=== PATIENT | male | born 1955 | race African-American/Black ===

== ENCOUNTER 2019-12-31 00:29 | Inpatient (IN) | payer MEDICAID ==
[~2019-12-31] VITALS: Ht 170.2 cm; Wt 67.6 kg
[2019-12-31] MEDS ORDERED: ONDANSETRON HCL 4MG/2ML INJ IV STA (00:58)
[2019-12-31] MEDS ORDERED: ALBUTEROL (0.083%) 2.5MG/3ML NEB HHN STA (00:58)
[2019-12-31] MEDS ORDERED: IPRATROPIUM BROMIDE (0.02%) 0.5MG/2.5ML NEB HHN STA (00:58)
[2019-12-31] MEDS ORDERED: ASPIRIN 81MG TABLET PO ONE (01:00)
[2019-12-31 01:32] LABS: EOSINOPHILS % 0.8 % (0.0-5.0); HEMATOCRIT. 43.7 % (42.0-52.0); HEMOGLOBIN. 14.4 g/dL (14.0-18.0); LYMPHOCYTES % 22.1 % (20.0-50.0); MEAN CORPUSCULAR HEMOGLOBIN 31.8 pg (28.0-32.0); MEAN CORPUSCULAR VOLUME 96.7 fL (80.0-94.0); MEAN PLATELET VOLUME 8.1 fl (7.4-10.4); MONOCYTES % 9.4 % (2.0-8.0); NEUTROPHILS % 66.7 % (40.0-76.0); PLATELET 255 x1000/uL (130-400); RED BLOOD CELL COUNT 4.52 mill/uL (4.7-6.1); RED CELL DISTRIBUTION WIDTH 15.5 % (11.6-14.6)
[2019-12-31 01:39] LABS: CHLORIDE 98 mEq/L (98-107)
[2019-12-31 06:00] VITALS: BP 129/59
[2019-12-31] MEDS ORDERED: MORPHINE SULFATE 2 MG/ML CPJ (NOT FOR IM USE) IV PRN (06:15)
[2019-12-31] MEDS ORDERED: CLONIDINE 0.1MG TABLET PO PRN (06:15)
[2019-12-31] MEDS ORDERED: IPRATROPIUM/ALBUTEROL 0.5-3(2.5)MG/3ML NEB HHN PRN (06:15)
[2019-12-31] MEDS ORDERED: LORAZEPAM 0.5MG TABLET PO PRN (06:30)
[2019-12-31] MEDS ORDERED: METHYLPREDNISOLONE SOD SUCC 40 MG/ML VIAL IV SCH (07:00)
[2019-12-31] MEDS ORDERED: KETOROLAC 15MG/ML VIAL IV PRN (07:30)
[2019-12-31] MEDS: IPRATROPIUM/ALBUTEROL 0.5-3(2.5)MG/3ML NEB HHN SCH ×2 (07:51→12:14)
[2019-12-31 08:00] VITALS: BP 116/51
[2019-12-31 08:45] VITALS: BP 129/59
[2019-12-31] MEDS ORDERED: LEVOFLOXACIN 500MG PREMIX 100 ML IV SCH (09:00)
[2019-12-31] MEDS ORDERED: ENOXAPARIN 40MG/0.4ML SYR SUBCUT SCH (09:00)
[2019-12-31 10:20] VITALS: BP 97/51
[2020-01-01] MEDS ORDERED: FURO20TA4 MT (11:58)
[2020-01-01] MEDS ORDERED: METF-414 MT (11:58)
[2020-01-01] MEDS ORDERED: MONT10TA21 MT (11:58)
[2020-01-01] MEDS ORDERED: LISI-604 MT (11:58)
[2020-01-01] MEDS ORDERED: ALBU6.7H9 INH (11:58)
[2020-01-01] MEDS ORDERED: FLUT1AER5 INH (11:58)
[2020-01-01] MEDS ORDERED: P20 MT (11:58)
[2020-01-01] MEDS ORDERED: IBUP-2030 MT (11:58)
[2020-01-01] MEDS ORDERED: AMLO10TA80 MT (11:58)
[2020-01-13] MEDS ORDERED: HYDR-4009 MT (12:01)
[2020-01-13] MEDS ORDERED: METF500T PO (12:01)
[2020-01-13] MEDS ORDERED: FURO-152 MT (12:01)
== END 2019-12-31 14:32 | disposition left against medical advice (07) | DRG 140 ==
LOC: ER 00:29 → EDBEDREQ 02:10 → ENRESERV 02:45 → 3WST 06:13 → 7WST 09:50
PROVIDERS: ADMIT Internal Medicine; ATTEND Internal Medicine
PROC: 5A09357 Assistance with Respiratory Ventilation, Less than 24 Consecutive Hours, Continuous Positive Airway Pressure (ICD-10-PCS; principal; 2019-12-31)
DX: J44.1 Chronic obstructive pulmonary disease with (acute) exacerbation (principal); J96.20 Acute and chronic respiratory failure, unspecified whether with hypoxia or hypercapnia; Z99.81 Dependence on supplemental oxygen; I10 Essential (primary) hypertension; Z51.5 Encounter for palliative care; Z79.899 Other long term (current) drug therapy
CPT/HCPCS: 36415; 71045; 80053; 83605; 83880; 84484; 85025; 87804; 93005; 94640; 94660; 99285; J1650; J1885; J1956; J2405; J2920

== ENCOUNTER 2020-01-01 06:00 | Inpatient (IN) | payer MEDICAID ==
[~2020-01-01] VITALS: Ht 175.3 cm; Wt 63.5 kg
[2020-01-01] MEDS ORDERED: IPRATROPIUM BROMIDE (0.02%) 0.5MG/2.5ML NEB HHN STA (06:16)
[2020-01-01] MEDS ORDERED: ALBUTEROL (0.083%) 2.5MG/3ML NEB HHN STA (06:16)
[2020-01-01] MEDS ORDERED: ASPIRIN 81MG TABLET PO ONE (06:30)
[2020-01-01] MEDS ORDERED: MAGNESIUM 2 G PREMIX 50 ML IV ONE (06:30)
[2020-01-01] MEDS ORDERED: ONDANSETRON HCL 4MG/2ML INJ IV ONE (06:30)
[2020-01-01] MEDS ORDERED: HYDROCODONE/ACETAMINOPHEN 5/325MG TABLET PO ONE (06:30)
[2020-01-01] MEDS ORDERED: NITROGLYCERIN OINT 1GM/INCH UDPKT TD ONE (06:30)
[2020-01-01] MEDS: ALBUTEROL (0.083%) 2.5MG/3ML NEB HHN SCH ×2 (07:15→07:29)
[2020-01-01 07:26] LABS: BASOPHILS % 0.7 % (0.0-2.0); HEMATOCRIT. 46.4 % (42.0-52.0); MEAN CORPUSCULAR HEMOGLOBIN 31.5 pg (28.0-32.0); MEAN CORPUSCULAR VOLUME 97.3 fL (80.0-94.0); MEAN PLATELET VOLUME 7.8 fl (7.4-10.4); MONOCYTES % 10.1 % (2.0-8.0); NEUTROPHILS % 70.2 % (40.0-76.0); PLATELET 268 x1000/uL (130-400); RED BLOOD CELL COUNT 4.77 mill/uL (4.7-6.1); RED CELL DISTRIBUTION WIDTH 15.4 % (11.6-14.6)
[2020-01-01 07:36] LABS: CHLORIDE 97 mEq/L (98-107)
[2020-01-01 09:20] VITALS: BP 102/58
[2020-01-01 09:25] VITALS: BP 102/58
[2020-01-01] MEDS ORDERED: IPRATROPIUM/ALBUTEROL 0.5-3(2.5)MG/3ML NEB HHN PRN (11:00)
[2020-01-01] MEDS ORDERED: ACETAMINOPHEN 325MG TABLET PO PRN (11:00)
[2020-01-01] MEDS ORDERED: ONDANSETRON HCL 4MG/2ML INJ IV PRN (11:00)
[2020-01-01] MEDS ORDERED: CLONIDINE 0.1MG TABLET PO PRN (11:00)
[2020-01-01 11:56] VITALS: BP 93/39
[2020-01-01] MEDS ORDERED: IBUP-2030 MT (11:58)
[2020-01-01] MEDS ORDERED: METF-414 MT (11:58)
[2020-01-01] MEDS ORDERED: MONT10TA21 MT (11:58)
[2020-01-01] MEDS ORDERED: ALBU6.7H9 INH (11:58)
[2020-01-01] MEDS ORDERED: LISI-604 MT (11:58)
[2020-01-01] MEDS ORDERED: P20 MT (11:58)
[2020-01-01] MEDS ORDERED: FLUT1AER5 INH (11:58)
[2020-01-01] MEDS ORDERED: AMLO10TA80 MT (11:58)
[2020-01-01] MEDS ORDERED: FURO20TA4 MT (11:58)
[2020-01-01] MEDS: METHYLPREDNISOLONE SOD SUCC 40 MG/ML VIAL IV SCH ×2 (12:49→19:03)
[2020-01-01] MEDS: ENOXAPARIN 40MG/0.4ML SYR SUBCUT SCH (12:52)
[2020-01-01] MEDS: HYDROCODONE/ACETAMINOPHEN 5/325MG TABLET PO PRN ×2 (13:51→23:16)
[2020-01-01] MEDS: IPRATROPIUM/ALBUTEROL 0.5-3(2.5)MG/3ML NEB HHN SCH ×3 (14:15→20:26)
[2020-01-01 16:07] VITALS: BP 106/61
[2020-01-01 18:57] LABS: *AMPHETAMINES SCREEN URINE NEGATIVE (NEGATIVE); *BARBITURATES SCREEN URINE NEGATIVE (NEGATIVE); *BENZODIAZEPINES SCREEN URINE NEGATIVE (NEGATIVE); *COCAINE SCREEN URINE PRESUMTIVE POSITIVE (NEGATIVE); METHADONE URINE SCREEN NEGATIVE (NEGATIVE); PHENCYCLIDINE URINE SCREEN NEGATIVE (NEGATIVE)
[2020-01-01 18:58] LABS: CANNABINOID URINE SCREEN NEGATIVE (NEGATIVE)
[2020-01-01 20:00] VITALS: BP 126/72
[2020-01-02] VITALS (7 sets, daily range): BP systolic 124–150; BP diastolic 66–85
[2020-01-02] MEDS: IPRATROPIUM/ALBUTEROL 0.5-3(2.5)MG/3ML NEB HHN SCH ×7 (00:33→23:48)
[2020-01-02] MEDS: METHYLPREDNISOLONE SOD SUCC 40 MG/ML VIAL IV SCH ×3 (02:37→19:29)
[2020-01-02] MEDS: HYDROCODONE/ACETAMINOPHEN 5/325MG TABLET PO PRN ×3 (06:09→19:29)
[2020-01-02] MEDS: ENOXAPARIN 40MG/0.4ML SYR SUBCUT SCH (11:38)
[2020-01-02] MEDS: METFORMIN HCL 500MG TABLET PO SCH (19:34)
[2020-01-03] VITALS: BP 232/73
[2020-01-03 00:41] VITALS: BP 136/73
[2020-01-03] MEDS: METHYLPREDNISOLONE SOD SUCC 40 MG/ML VIAL IV SCH ×2 (03:52→11:58)
[2020-01-03 04:00] VITALS: BP 126/49
[2020-01-03] MEDS: IPRATROPIUM/ALBUTEROL 0.5-3(2.5)MG/3ML NEB HHN SCH ×2 (04:43→08:25)
[2020-01-03 08:00] VITALS: BP 146/72
[2020-01-03] MEDS: METFORMIN HCL 500MG TABLET PO SCH (08:11)
[2020-01-03] MEDS: HYDROCODONE/ACETAMINOPHEN 5/325MG TABLET PO PRN (08:13)
[2020-01-03] MEDS: ENOXAPARIN 40MG/0.4ML SYR SUBCUT SCH (11:59)
[2020-01-03 12:00] VITALS: BP 115/76
[2020-01-03 13:20] VITALS: BP 115/76
[2020-01-04 16:50] LABS: OPIATES URINE SCREEN PRESUMTIVE POSITIVE (NEGATIVE)
[2020-01-13] MEDS ORDERED: FURO-152 MT (12:01)
[2020-01-13] MEDS ORDERED: HYDR-4009 MT (12:01)
[2020-01-13] MEDS ORDERED: METF500T PO (12:01)
== END 2020-01-03 15:05 | disposition home or self-care (01) | DRG 816 ==
LOC: ER 06:00 → EDBEDREQ 06:20 → 6WST 07:04 → EDBEDREQTM 07:23 → EDBEDREQ 07:23 → ENRESERV 08:05 → CANRESERV 08:05 → ENRESERV 08:07
PROVIDERS: ADMIT Internal Medicine; ATTEND Internal Medicine
DX: T40.5X1A Poisoning by cocaine, accidental (unintentional), initial encounter (principal); J96.20 Acute and chronic respiratory failure, unspecified whether with hypoxia or hypercapnia; I11.0 Hypertensive heart disease with heart failure; E87.8 Other disorders of electrolyte and fluid balance, not elsewhere classified; I50.42 Chronic combined systolic (congestive) and diastolic (congestive) heart failure; J18.9 Pneumonia, unspecified organism; E11.9 Type 2 diabetes mellitus without complications; F14.10 Cocaine abuse, uncomplicated; J44.0 Chronic obstructive pulmonary disease with (acute) lower respiratory infection; J44.1 Chronic obstructive pulmonary disease with (acute) exacerbation; F17.210 Nicotine dependence, cigarettes, uncomplicated; Z51.5 Encounter for palliative care; R07.89 Other chest pain; F15.90 Other stimulant use, unspecified, uncomplicated; I25.2 Old myocardial infarction; Z88.5 Allergy status to narcotic agent; Z99.81 Dependence on supplemental oxygen; Z71.51 Drug abuse counseling and surveillance of drug abuser; Y92.89 Other specified places as the place of occurrence of the external cause
CPT/HCPCS: 36415; 71045; 80053; 80305; 82962; 83036; 83880; 84484; 85025; 93005; 94640; 99285; J1650; J2405; J2920; J3475

== ENCOUNTER 2022-03-31 11:59 | Inpatient (IN) | payer MEDICARE, MEDICAID ==
[~2022-03-31] VITALS: Ht 175.3 cm; Wt 57.6 kg
[~2022-03-31 11:59] MED LIST: ALBU6.7H9 INH; AMLO10TA80 MT; FLUT1AER5 INH; FURO-152 MT; FURO20TA4 MT; HYDR-4009 MT; IBUP-2030 MT; LISI20TA31 MT; METF-414 MT; METF500T PO; MONT10TA21 MT; P20 MT
[2022-03-31] MEDS ORDERED: METHYLPREDNISOLONE SOD SUCC 125 MG/2 ML VIAL IV STA (12:26)
[2022-03-31] MEDS ORDERED: IPRATROPIUM BROMIDE (0.02%) 0.5MG/2.5ML NEB HHN STA ×2 (12:26→15:09)
[2022-03-31] MEDS ORDERED: ALBUTEROL (0.083%) 2.5MG/3ML NEB HHN STA ×2 (12:26→15:09)
[2022-03-31] MEDS ORDERED: HYDROCODONE/ACETAMINOPHEN 5/325MG TABLET PO ONE (12:30)
[2022-03-31] MEDS ORDERED: HYDROCODONE/ACETAMINOPHEN 10/325MG TABLET PO ONE (12:45)
[2022-03-31 13:09] LABS: BASOPHILS % 0.8 % (0.0-2.0); HEMATOCRIT. 48.6 % (42.0-52.0); HEMOGLOBIN. 15.8 g/dL (14.0-18.0); LYMPHOCYTES % 33.2 % (20.0-50.0); MEAN CORPUSCULAR HEMOGLOBIN 31.8 pg (28.0-32.0); MEAN CORPUSCULAR VOLUME 98.1 fL (80.0-94.0); MEAN PLATELET VOLUME 8.3 fl (7.4-10.4); MONOCYTES % 11.1 % (2.0-8.0); NEUTROPHILS % 52.9 % (40.0-76.0); PLATELET 206 x1000/uL (130-400); RED BLOOD CELL COUNT 4.96 mill/uL (4.7-6.1)
[2022-03-31 13:15] LABS: CHLORIDE 100 mEq/L (98-107)
[2022-03-31] MEDS ORDERED: ALBUTEROL (0.5%) 2.5MG/0.5ML NEB HHN ONE (18:27)
[2022-03-31] MEDS ORDERED: IPRATROPIUM BROMIDE (0.02%) 0.5MG/2.5ML NEB ONE (18:27)
[2022-03-31] MEDS ORDERED: NALOXONE HCL 0.4MG/ML VIAL IV PRN (18:30)
[2022-03-31] MEDS ORDERED: HYDROCODONE/ACETAMINOPHEN 10/325MG TABLET PO PRN (18:30)
[2022-03-31] MEDS ORDERED: IPRATROPIUM/ALBUTEROL 0.5-3(2.5)MG/3ML NEB HHN PRN (21:15)
[2022-03-31] MEDS ORDERED: CLONIDINE 0.1MG TABLET PO PRN (21:15)
[2022-03-31] MEDS ORDERED: DEXTROSE 50% WATER 50ML SYRINGE IV PRN (21:30)
[2022-03-31] MEDS: METHYLPREDNISOLONE SOD SUCC 40 MG/ML VIAL IV SCH (22:09)
[2022-03-31] MEDS: ZOLPIDEM TARTRATE 5MG TABLET PO PRN (22:10)
[2022-03-31 22:38] VITALS: BP 190/93
[2022-03-31] MEDS: LEVOFLOXACIN 500MG PREMIX 100 ML IV SCH (23:21)
[2022-04-01] VITALS: BP 139/69
[2022-04-01] MEDS: HYDROCODONE/ACETAMINOPHEN 10/325MG TABLET PO PRN ×3 (01:47→18:51)
[2022-04-01 04:00] VITALS: BP 124/56
[2022-04-01] MEDS: BLOOD SUGAR DIAGNOSTIC STRIP TEST SCH ×4 (07:23→20:35)
[2022-04-01] MEDS: METHYLPREDNISOLONE SOD SUCC 40 MG/ML VIAL IV SCH ×3 (07:27→20:35)
[2022-04-01 08:00] VITALS: BP 109/62
[2022-04-01] MEDS: INSULIN LISPRO 100 UNITS/ML SUBCUT SCH ×4 (08:10→20:35)
[2022-04-01] MEDS: ENOXAPARIN 40MG/0.4ML SYR SUBCUT SCH (08:37)
[2022-04-01] MEDS: METFORMIN HCL 500MG TABLET PO SCH ×2 (08:37→17:47)
[2022-04-01] MEDS: LISINOPRIL 20MG TABLET PO SCH (09:00)
[2022-04-01] MEDS: AMLODIPINE 10MG TABLET PO SCH (09:00)
[2022-04-01 12:00] VITALS: BP 142/82
[2022-04-01 15:57] LABS: *AMPHETAMINES SCREEN URINE NEGATIVE (NEGATIVE); *BARBITURATES SCREEN URINE NEGATIVE (NEGATIVE); *BENZODIAZEPINES SCREEN URINE NEGATIVE (NEGATIVE); *COCAINE SCREEN URINE PRESUMTIVE POSITIVE (NEGATIVE); CANNABINOID URINE SCREEN PRESUMTIVE POSITIVE (NEGATIVE); METHADONE URINE SCREEN NEGATIVE (NEGATIVE); OPIATES URINE SCREEN PRESUMTIVE POSITIVE (NEGATIVE); PHENCYCLIDINE URINE SCREEN NEGATIVE (NEGATIVE)
[2022-04-01 16:00] VITALS: BP 114/52
[2022-04-01] MEDS: GUAIFENESIN-DM 200MG-20MG/10ML UDC PO PRN ×2 (16:03→20:35)
[2022-04-01 20:00] VITALS: BP 141/50
[2022-04-01] MEDS: ZOLPIDEM TARTRATE 5MG TABLET PO PRN (20:35)
[2022-04-01] MEDS: LEVOFLOXACIN 500MG PREMIX 100 ML IV SCH (21:55)
[2022-04-02] VITALS: BP 115/70
[2022-04-02] MEDS: GUAIFENESIN-DM 200MG-20MG/10ML UDC PO PRN ×2 (01:08→23:33)
[2022-04-02] MEDS: HYDROCODONE/ACETAMINOPHEN 10/325MG TABLET PO PRN ×3 (01:13→19:51)
[2022-04-02 04:00] VITALS: BP 103/80
[2022-04-02] MEDS: METHYLPREDNISOLONE SOD SUCC 40 MG/ML VIAL IV SCH ×3 (05:53→21:23)
[2022-04-02] MEDS: INSULIN LISPRO 100 UNITS/ML SUBCUT SCH ×4 (05:59→21:00)
[2022-04-02] MEDS: BLOOD SUGAR DIAGNOSTIC STRIP TEST SCH ×4 (05:59→21:00)
[2022-04-02 08:00] VITALS: BP 161/71
[2022-04-02] MEDS: ENOXAPARIN 40MG/0.4ML SYR SUBCUT SCH (08:34)
[2022-04-02] MEDS: LISINOPRIL 20MG TABLET PO SCH (08:34)
[2022-04-02] MEDS: METFORMIN HCL 500MG TABLET PO SCH ×2 (08:35→18:31)
[2022-04-02] MEDS: AMLODIPINE 10MG TABLET PO SCH (08:35)
[2022-04-02] MEDS ORDERED: ALBU6.7H9 INH (09:55)
[2022-04-02] MEDS ORDERED: FLUT1AER5 INH (09:55)
[2022-04-02] MEDS ORDERED: P20 MT (09:55)
[2022-04-02 12:00] VITALS: BP 110/52
[2022-04-02 16:00] VITALS: BP 132/62
[2022-04-02 20:00] VITALS: BP 105/35
[2022-04-02] MEDS: LEVOFLOXACIN 500MG PREMIX 100 ML IV SCH (21:23)
[2022-04-02] MEDS: IPRATROPIUM/ALBUTEROL 0.5-3(2.5)MG/3ML NEB HHN SCH (21:43)
[2022-04-03 04:00] VITALS: BP 131/56
[2022-04-03] MEDS: GUAIFENESIN-DM 200MG-20MG/10ML UDC PO PRN ×2 (04:56→20:23)
[2022-04-03] MEDS: HYDROCODONE/ACETAMINOPHEN 10/325MG TABLET PO PRN ×2 (04:56→20:24)
[2022-04-03] MEDS: METHYLPREDNISOLONE SOD SUCC 40 MG/ML VIAL IV SCH ×3 (04:56→20:23)
[2022-04-03] MEDS: BLOOD SUGAR DIAGNOSTIC STRIP TEST SCH ×4 (07:40→21:00)
[2022-04-03 08:00] VITALS: BP 119/64
[2022-04-03] MEDS: INSULIN LISPRO 100 UNITS/ML SUBCUT SCH ×4 (08:10→21:00)
[2022-04-03] MEDS: METFORMIN HCL 500MG TABLET PO SCH ×2 (09:00→17:40)
[2022-04-03] MEDS: LISINOPRIL 20MG TABLET PO SCH (09:00)
[2022-04-03] MEDS: ENOXAPARIN 40MG/0.4ML SYR SUBCUT SCH (09:01)
[2022-04-03] MEDS: AMLODIPINE 10MG TABLET PO SCH (09:01)
[2022-04-03] MEDS: IPRATROPIUM/ALBUTEROL 0.5-3(2.5)MG/3ML NEB HHN SCH ×4 (09:46→20:56)
[2022-04-03 12:00] VITALS: BP 104/44
[2022-04-03 16:00] VITALS: BP 109/46
[2022-04-03 20:00] VITALS: BP 125/40
[2022-04-03] MEDS: LEVOFLOXACIN 500MG PREMIX 100 ML IV SCH (21:10)
[2022-04-04] MEDS: IPRATROPIUM/ALBUTEROL 0.5-3(2.5)MG/3ML NEB HHN SCH ×4 (00:30→21:40)
[2022-04-04 04:00] VITALS: BP 117/55
[2022-04-04] MEDS: METHYLPREDNISOLONE SOD SUCC 40 MG/ML VIAL IV SCH ×2 (05:21→17:47)
[2022-04-04 06:48] LABS: CHLORIDE 96 mEq/L (98-107)
[2022-04-04 07:04] LABS: HEMATOCRIT. 43.2 % (42.0-52.0); HEMOGLOBIN. 13.9 g/dL (14.0-18.0); MEAN CORPUSCULAR HEMOGLOBIN 31.6 pg (28.0-32.0); MEAN CORPUSCULAR VOLUME 98.4 fL (80.0-94.0); MEAN PLATELET VOLUME 9.8 fl (7.4-10.4); PLATELET 190 x1000/uL (130-400); RED BLOOD CELL COUNT 4.39 mill/uL (4.7-6.1)
[2022-04-04] MEDS: BLOOD SUGAR DIAGNOSTIC STRIP TEST SCH ×4 (07:10→20:49)
[2022-04-04] MEDS: INSULIN LISPRO 100 UNITS/ML SUBCUT SCH ×4 (07:10→20:50)
[2022-04-04 08:00] VITALS: BP 126/61
[2022-04-04] MEDS: HYDROCODONE/ACETAMINOPHEN 10/325MG TABLET PO PRN ×3 (09:10→21:24)
[2022-04-04] MEDS: LISINOPRIL 20MG TABLET PO SCH (09:10)
[2022-04-04] MEDS: AMLODIPINE 10MG TABLET PO SCH (09:10)
[2022-04-04] MEDS: METFORMIN HCL 500MG TABLET PO SCH ×2 (09:11→17:47)
[2022-04-04] MEDS: ENOXAPARIN 40MG/0.4ML SYR SUBCUT SCH (09:13)
[2022-04-04 12:00] VITALS: BP 102/52
[2022-04-04] MEDS: BENZONATATE 100MG CAPSULE PO SCH ×2 (12:38→20:49)
[2022-04-04 16:00] VITALS: BP 133/72
[2022-04-04 20:00] VITALS: BP 124/68
[2022-04-04] MEDS: LEVOFLOXACIN 500MG PREMIX 100 ML IV SCH (21:25)
[2022-04-04] MEDS: ZOLPIDEM TARTRATE 5MG TABLET PO PRN (22:45)
[2022-04-05] VITALS: BP 128/66
[2022-04-05] MEDS: GUAIFENESIN-DM 200MG-20MG/10ML UDC PO PRN (01:39)
[2022-04-05] MEDS: HYDROCODONE/ACETAMINOPHEN 10/325MG TABLET PO PRN ×4 (03:26→22:49)
[2022-04-05] MEDS: IPRATROPIUM/ALBUTEROL 0.5-3(2.5)MG/3ML NEB HHN SCH ×4 (03:38→21:38)
[2022-04-05 04:00] VITALS: BP 119/58
[2022-04-05] MEDS: BENZONATATE 100MG CAPSULE PO SCH ×3 (04:30→20:57)
[2022-04-05] MEDS: BLOOD SUGAR DIAGNOSTIC STRIP TEST SCH ×4 (06:41→20:48)
[2022-04-05] MEDS: INSULIN LISPRO 100 UNITS/ML SUBCUT SCH ×4 (06:41→20:48)
[2022-04-05 07:23] LABS: PLATELET ESTIMATE NORMAL
[2022-04-05 08:00] VITALS: BP 126/77
[2022-04-05] MEDS: LISINOPRIL 20MG TABLET PO SCH (08:43)
[2022-04-05] MEDS: METHYLPREDNISOLONE SOD SUCC 40 MG/ML VIAL IV SCH (08:44)
[2022-04-05] MEDS: ENOXAPARIN 40MG/0.4ML SYR SUBCUT SCH (08:44)
[2022-04-05] MEDS: METFORMIN HCL 500MG TABLET PO SCH ×2 (08:44→17:26)
[2022-04-05] MEDS: AMLODIPINE 10MG TABLET PO SCH (08:44)
[2022-04-05 12:00] VITALS: BP 135/66
[2022-04-05] MEDS ORDERED: IPRA3AMP9 HHN (13:56)
[2022-04-05 16:00] VITALS: BP 145/54
[2022-04-05] MEDS: PREDNISONE 20MG TABLET PO SCH (16:29)
[2022-04-05 20:00] VITALS: BP 125/59
[2022-04-05] MEDS ORDERED: LEVOFLOXACIN 500MG TABLET PO SCH (21:00)
[2022-04-05] MEDS ORDERED: ZOLPIDEM TARTRATE 5MG TABLET PO PRN (22:45)
[2022-04-06] VITALS: BP 108/59
[2022-04-06] MEDS: IPRATROPIUM/ALBUTEROL 0.5-3(2.5)MG/3ML NEB HHN SCH ×2 (01:50→08:33)
[2022-04-06 04:00] VITALS: BP 105/51
[2022-04-06] MEDS: BENZONATATE 100MG CAPSULE PO SCH (04:39)
[2022-04-06] MEDS: HYDROCODONE/ACETAMINOPHEN 10/325MG TABLET PO PRN (04:39)
[2022-04-06] MEDS: BLOOD SUGAR DIAGNOSTIC STRIP TEST SCH ×2 (07:34→12:05)
[2022-04-06] MEDS: INSULIN LISPRO 100 UNITS/ML SUBCUT SCH ×2 (07:34→12:05)
[2022-04-06 08:00] VITALS: BP 145/91
[2022-04-06] MEDS: AMLODIPINE 10MG TABLET PO SCH (08:56)
[2022-04-06] MEDS: PREDNISONE 20MG TABLET PO SCH (08:56)
[2022-04-06] MEDS: ENOXAPARIN 40MG/0.4ML SYR SUBCUT SCH (08:56)
[2022-04-06] MEDS: METFORMIN HCL 500MG TABLET PO SCH (08:56)
[2022-04-06] MEDS: LISINOPRIL 20MG TABLET PO SCH (08:57)
[2022-04-06 10:28] VITALS: BP 140/68
== END 2022-04-06 13:05 | disposition home or self-care (01) | DRG 140 ==
LOC: ER 12:10 → 7WST 16:50 → ENRESERV 19:17
PROVIDERS: ADMIT Internal Medicine; ATTEND Internal Medicine
DX: J44.1 Chronic obstructive pulmonary disease with (acute) exacerbation (principal); J96.01 Acute respiratory failure with hypoxia; E11.40 Type 2 diabetes mellitus with diabetic neuropathy, unspecified; D72.819 Decreased white blood cell count, unspecified; F12.90 Cannabis use, unspecified, uncomplicated; F14.90 Cocaine use, unspecified, uncomplicated; I10 Essential (primary) hypertension; Z99.81 Dependence on supplemental oxygen; Z20.822 Contact with and (suspected) exposure to COVID-19; F17.210 Nicotine dependence, cigarettes, uncomplicated; Z88.8 Allergy status to other drugs, medicaments and biological substances; Z79.899 Other long term (current) drug therapy
CPT/HCPCS: 36415; 71045; 80048; 80053; 80305; 82962; 83036; 85025; 87426; 93005; 94640; 99285; C9803; J1650; J1956; J2920; J2930; J7512

== ENCOUNTER 2022-05-20 18:11 | Inpatient (IN) | payer MEDICARE, MEDICAID ==
[~2022-05-20] VITALS: Ht 177.8 cm; Wt 65.3 kg
[~2022-05-20 18:11] MED LIST changes: +IPRA3AMP9 HHN
[2022-05-20] MEDS ORDERED: IPRATROPIUM BROMIDE (0.02%) 0.5MG/2.5ML NEB HHN STA (18:22)
[2022-05-20] MEDS ORDERED: METHYLPREDNISOLONE SOD SUCC 125 MG/2 ML VIAL IV STA (18:22)
[2022-05-20] MEDS ORDERED: ALBUTEROL (0.083%) 2.5MG/3ML NEB HHN STA (18:22)
[2022-05-20] MEDS ORDERED: DOXYCYCLINE HYCLATE 100MG CAPSULE PO ONE (18:30)
[2022-05-20] MEDS ORDERED: AMLODIPINE 10MG TABLET PO SCH (18:30)
[2022-05-20] MEDS ORDERED: SODIUM CHLORIDE 0.9% 500 ML IV ONE (18:30)
[2022-05-20] MEDS ORDERED: HYDROCODONE/ACETAMINOPHEN 10/325MG TABLET PO ONE (18:30)
[2022-05-20] MEDS ORDERED: FUROSEMIDE 20MG/2ML VIAL IVP ONE (18:30)
[2022-05-20] MEDS ORDERED: ALBUTEROL (0.083%) 2.5MG/3ML NEB HHN NR (20:45)
[2022-05-20 20:48] LABS: BASOPHILS % 1.1 % (0.0-2.0); EOSINOPHILS % 0.8 % (0.0-5.0); HEMATOCRIT. 40.6 % (42.0-52.0); HEMOGLOBIN. 13.5 g/dL (14.0-18.0); LYMPHOCYTES % 25.6 % (20.0-50.0); MEAN CORPUSCULAR HEMOGLOBIN 31.9 pg (28.0-32.0); MEAN CORPUSCULAR VOLUME 96.2 fL (80.0-94.0); MEAN PLATELET VOLUME 8.8 fl (7.4-10.4); MONOCYTES % 12.1 % (2.0-8.0); NEUTROPHILS % 60.4 % (40.0-76.0); PLATELET 271 x1000/uL (130-400); RED BLOOD CELL COUNT 4.22 mill/uL (4.7-6.1); RED CELL DISTRIBUTION WIDTH 13.9 % (11.6-14.6)
[2022-05-20 20:53] LABS: CHLORIDE 103 mEq/L (98-107)
[2022-05-21] VITALS (10 sets, daily range): BP systolic 120–150; BP diastolic 55–82
[2022-05-21] MEDS: HYDROCODONE/ACETAMINOPHEN 10/325MG TABLET PO PRN ×5 (00:56→23:08)
[2022-05-21 08:58] LABS: BG BASE EXCESS 3.2 mmol/L (-2.0-2.0); BG CARBOXYHEMOGLOBIN 1.4 % (0.5-1.5); BG DEOXYHEMOGLOBIN 2.2 % (0.0-5.0); BG FRACTION INSPIRED OXYGEN 32; BG HCO3 ACT 31.4 mmol/L (22.0-26.0); BG METHEMOGLOBIN 0.2 % (0.0-1.5); BG OXYGEN SATURATION 97.8 % (92.0-98.5); BG OXYHEMOGLOBIN 96.2 % (94.0-97.0); BG PCO2 63.2 mmHg (35.0-45.0); BG PH 7.314 (7.350-7.450); BG PO2 109.1 mmHg (75.0-100.0); BG SAMPLE SITE LEFT BRACHIAL; BG TOTAL HEMOGLOBIN 15.1 g/dL (12.0-18.0); BG VENT MODE NASAL CANNULA
[2022-05-21] MEDS: GUAIFENESIN-DM 200MG-20MG/10ML UDC PO PRN ×2 (09:48→17:21)
[2022-05-21] MEDS: METHYLPREDNISOLONE SOD SUCC 40 MG/ML VIAL IV SCH ×3 (09:48→21:33)
[2022-05-21] MEDS: AMLODIPINE 10MG TABLET PO SCH (14:05)
[2022-05-21] MEDS ORDERED: VITAMINS A AND D OINT TUBE TOP PRN (16:00)
[2022-05-21] MEDS: IPRATROPIUM/ALBUTEROL 0.5-3(2.5)MG/3ML NEB HHN SCH ×3 (16:25→23:54)
[2022-05-21] MEDS ORDERED: MONTELUKAST SODIUM 10MG TABLET PO SCH (17:00)
[2022-05-21 19:37] LABS: *AMPHETAMINES SCREEN URINE NEGATIVE (NEGATIVE); *BARBITURATES SCREEN URINE NEGATIVE (NEGATIVE); *BENZODIAZEPINES SCREEN URINE NEGATIVE (NEGATIVE); *COCAINE SCREEN URINE PRESUMTIVE POSITIVE (NEGATIVE); CANNABINOID URINE SCREEN PRESUMTIVE POSITIVE (NEGATIVE); METHADONE URINE SCREEN NEGATIVE (NEGATIVE); OPIATES URINE SCREEN PRESUMTIVE POSITIVE (NEGATIVE); PHENCYCLIDINE URINE SCREEN NEGATIVE (NEGATIVE)
[2022-05-21] MEDS ORDERED: BENZONATATE 100MG CAPSULE PO PRN (19:45)
[2022-05-21] MEDS ORDERED: IPRA3AMP9 NEB (19:45)
[2022-05-21] MEDS ORDERED: FLUT1DIS3 INH (19:45)
[2022-05-21] MEDS ORDERED: NALOXONE HCL 0.4MG/ML VIAL IV PRN (19:45)
[2022-05-21] MEDS ORDERED: ALBU6.7H9 INH (19:45)
[2022-05-21] MEDS ORDERED: MED4 MT (19:46)
[2022-05-21] MEDS: NICOTINE 21MG PATCH TD SCH (21:33)
[2022-05-22] VITALS (13 sets, daily range): BP systolic 83–136; BP diastolic 40–87
[2022-05-22] MEDS: HYDROCODONE/ACETAMINOPHEN 10/325MG TABLET PO PRN ×5 (03:06→21:29)
[2022-05-22] MEDS: GUAIFENESIN-DM 200MG-20MG/10ML UDC PO PRN ×3 (03:06→21:28)
[2022-05-22] MEDS: IPRATROPIUM/ALBUTEROL 0.5-3(2.5)MG/3ML NEB HHN SCH ×5 (04:07→20:34)
[2022-05-22] MEDS: METHYLPREDNISOLONE SOD SUCC 40 MG/ML VIAL IV SCH ×3 (06:12→21:28)
[2022-05-22] MEDS: AMLODIPINE 10MG TABLET PO SCH (08:37)
[2022-05-22] MEDS: NICOTINE 21MG PATCH TD SCH (08:38)
[2022-05-22] MEDS: KETOCONAZOLE 2% CREAM 15GM TOP SCH (08:38)
[2022-05-23] VITALS (8 sets, daily range): BP systolic 110–140; BP diastolic 50–75
[2022-05-23] MEDS: IPRATROPIUM/ALBUTEROL 0.5-3(2.5)MG/3ML NEB HHN SCH ×5 (00:44→16:20)
[2022-05-23] MEDS: HYDROCODONE/ACETAMINOPHEN 10/325MG TABLET PO PRN ×3 (01:38→10:06)
[2022-05-23] MEDS: GUAIFENESIN-DM 200MG-20MG/10ML UDC PO PRN ×3 (01:39→10:06)
[2022-05-23] MEDS: METHYLPREDNISOLONE SOD SUCC 40 MG/ML VIAL IV SCH (05:36)
[2022-05-23] MEDS: KETOCONAZOLE 2% CREAM 15GM TOP SCH (09:01)
[2022-05-23] MEDS: AMLODIPINE 10MG TABLET PO SCH (09:01)
[2022-05-23] MEDS: NICOTINE 21MG PATCH TD SCH (09:01)
[2022-05-23] MEDS ORDERED: BENZ100C86 PO (11:42)
[2022-05-23] MEDS ORDERED: GABA-533 MT (16:40)
[2022-05-23] MEDS ORDERED: HYDR-4009 MT (16:40)
== END 2022-05-23 18:30 | disposition home health service (06) | DRG 816 ==
LOC: ER 18:11 → 7WST 05-21 04:52 → MICUSO 05-21 05:10 → 5EST 05-21 08:52
PROVIDERS: ADMIT Internal Medicine; ATTEND Internal Medicine
DX: T59.891A Toxic effect of other specified gases, fumes and vapors, accidental (unintentional), initial encounter (principal); J96.22 Acute and chronic respiratory failure with hypercapnia; J68.0 Bronchitis and pneumonitis due to chemicals, gases, fumes and vapors; B35.1 Tinea unguium; E11.42 Type 2 diabetes mellitus with diabetic polyneuropathy; F12.90 Cannabis use, unspecified, uncomplicated; I11.0 Hypertensive heart disease with heart failure; I50.32 Chronic diastolic (congestive) heart failure; J43.9 Emphysema, unspecified; L85.3 Xerosis cutis; F14.90 Cocaine use, unspecified, uncomplicated; F17.210 Nicotine dependence, cigarettes, uncomplicated; Z20.822 Contact with and (suspected) exposure to COVID-19; Z99.81 Dependence on supplemental oxygen; Z88.8 Allergy status to other drugs, medicaments and biological substances; Z79.84 Long term (current) use of oral hypoglycemic drugs; Z79.899 Other long term (current) drug therapy; Z71.51 Drug abuse counseling and surveillance of drug abuser; Y92.89 Other specified places as the place of occurrence of the external cause
CPT/HCPCS: 36415; 36600; 71045; 80053; 80305; 82375; 82805; 82962; 83880; 84484; 85025; 87426; 93923; 93970; 94640; 99291; C9803; J1940; J2920; J2930; J7040

== ENCOUNTER 2022-05-29 15:00 | Emergency (ER) | payer MEDICARE, MEDICAID ==
[~2022-05-29] VITALS: Ht 172.7 cm; Wt 61.0 kg
[~2022-05-29 15:00] MED LIST changes: +BENZ100C86 PO; +FLUT1DIS3 INH; -FURO20TA4 MT; +GABA-533 MT; -IBUP-2030 MT; -IPRA3AMP9 HHN; +IPRA3AMP9 NEB; +MED4 MT; -METF500T PO; -P20 MT
[2022-05-29] MEDS ORDERED: GABA100C MT (16:34)
[2022-05-29] MEDS ORDERED: GABAPENTIN 100MG CAPSULE PO ONE (16:45)
[2022-05-29] MEDS ORDERED: KETOROLAC 60MG/2ML VIAL IM ONE (17:00)
[2022-05-29] MEDS ORDERED: GABAPENTIN 100MG CAPSULE PO NR (17:00)
[2022-05-29 17:06] VITALS: BP 188/74
== END 2022-05-29 17:11 | disposition home or self-care (01) ==
LOC: ER 15:00
DX: G57.93 Unspecified mononeuropathy of bilateral lower limbs (principal); J44.1 Chronic obstructive pulmonary disease with (acute) exacerbation; I11.0 Hypertensive heart disease with heart failure; I50.9 Heart failure, unspecified; J45.909 Unspecified asthma, uncomplicated; E11.42 Type 2 diabetes mellitus with diabetic polyneuropathy; Z79.899 Other long term (current) drug therapy
CPT/HCPCS: 93005; 96372; 99283; J1885

== ENCOUNTER 2022-06-13 10:16 | Inpatient (IN) | payer MEDICARE, OTHER ==
[~2022-06-13] VITALS: Ht 175.3 cm; Wt 60.3 kg
[~2022-06-13 10:16] MED LIST changes: +GABA100C MT
[2022-06-13] MEDS ORDERED: KETOROLAC 30MG/ML VIAL IV STA (10:55)
[2022-06-13 10:57] LABS: BASOPHILS % 0.4 % (0.0-2.0); EOSINOPHILS % 0.7 % (0.0-5.0); HEMATOCRIT. 44.3 % (42.0-52.0); HEMOGLOBIN. 14.1 g/dL (14.0-18.0); LYMPHOCYTES % 16.3 % (20.0-50.0); MEAN CORPUSCULAR HEMOGLOBIN 31.9 pg (28.0-32.0); MEAN CORPUSCULAR VOLUME 100.3 fL (80.0-94.0); MONOCYTES % 6.5 % (2.0-8.0); NEUTROPHILS % 76.1 % (40.0-76.0); PLATELET 182 x1000/uL (130-400); RED BLOOD CELL COUNT 4.41 mill/uL (4.7-6.1); RED CELL DISTRIBUTION WIDTH 14.8 % (11.6-14.6)
[2022-06-13 12:23] LABS: CHLORIDE 103 mEq/L (98-107)
[2022-06-13] MEDS ORDERED: ACETAMINOPHEN 325MG TABLET PO PRN (13:00)
[2022-06-13] MEDS: FAMOTIDINE 20MG TABLET PO SCH ×2 (13:00→20:56)
[2022-06-13] MEDS ORDERED: ONDANSETRON HCL 4MG/2ML INJ IV PRN (13:00)
[2022-06-13] MEDS: METHYLPREDNISOLONE SOD SUCC 40 MG/ML VIAL IV SCH ×2 (14:16→20:56)
[2022-06-13 17:10] VITALS: BP 161/96
[2022-06-13 18:00] VITALS: BP 136/87
[2022-06-13] MEDS ORDERED: IPRATROPIUM/ALBUTEROL 0.5-3(2.5)MG/3ML NEB HHN SCH (18:00)
[2022-06-13] MEDS: IPRATROPIUM/ALBUTEROL 0.5-3(2.5)MG/3ML NEB HHN SCH ×3 (18:08→23:52)
[2022-06-13] MEDS: HYDROCODONE/ACETAMINOPHEN 10/325MG TABLET PO PRN ×2 (19:41→23:04)
[2022-06-13] MEDS ORDERED: FAMOTIDINE 20MG TABLET PO SCH (21:00)
[2022-06-14] VITALS (12 sets, daily range): BP systolic 105–159; BP diastolic 61–99
[2022-06-14] MEDS: HYDROCODONE/ACETAMINOPHEN 10/325MG TABLET PO PRN ×3 (03:00→20:14)
[2022-06-14] MEDS: METHYLPREDNISOLONE SOD SUCC 40 MG/ML VIAL IV SCH ×2 (06:00→20:14)
[2022-06-14] MEDS: IPRATROPIUM/ALBUTEROL 0.5-3(2.5)MG/3ML NEB HHN SCH ×4 (08:54→20:09)
[2022-06-14] MEDS ORDERED: NALOXONE HCL 0.4MG/ML VIAL IV PRN (11:30)
[2022-06-14] MEDS: FAMOTIDINE 20MG TABLET PO SCH ×2 (13:27→20:14)
[2022-06-14] MEDS: GUAIFENESIN 200MG/10ML SUGAR FREE UDC PO PRN ×2 (13:54→20:14)
[2022-06-15] VITALS (8 sets, daily range): BP systolic 137–177; BP diastolic 64–90
[2022-06-15] MEDS: IPRATROPIUM/ALBUTEROL 0.5-3(2.5)MG/3ML NEB HHN SCH ×4 (00:05→12:53)
[2022-06-15] MEDS: HYDROCODONE/ACETAMINOPHEN 10/325MG TABLET PO PRN ×3 (00:28→09:47)
[2022-06-15] MEDS: GUAIFENESIN 200MG/10ML SUGAR FREE UDC PO PRN ×3 (00:29→09:47)
[2022-06-15] MEDS: ASPIRIN 81MG TABLET PO NR ×2 (04:24→07:39)
[2022-06-15] MEDS: FAMOTIDINE 20MG TABLET PO SCH (08:00)
[2022-06-15] MEDS: METHYLPREDNISOLONE SOD SUCC 40 MG/ML VIAL IV SCH (08:00)
[2022-06-15] MEDS ORDERED: ALBU6.7H9 INH (09:19)
[2022-06-15] MEDS ORDERED: HYDR-4009 MT (09:19)
[2022-06-15] MEDS ORDERED: IPRA3AMP9 NEB (09:19)
[2022-06-15] MEDS ORDERED: FLUT1DIS3 INH (09:19)
[2022-06-15] MEDS ORDERED: P20 MT (09:19)
[2022-06-15] MEDS ORDERED: AMLODIPINE 10MG TABLET PO SCH (11:00)
[2022-06-16] MEDS ORDERED: PREDNISONE 20MG TABLET PO SCH (09:00)
== END 2022-06-15 19:00 | disposition home or self-care (01) | DRG 140 ==
LOC: ER 10:46 → 5EST 12:50 → EDBEDREQ 12:52 → EDBEDREQTM 12:52 → ENRESERV 16:04 → 5EST 17:47
PROVIDERS: ADMIT Internal Medicine; ATTEND Internal Medicine
PROC: 5A09357 Assistance with Respiratory Ventilation, Less than 24 Consecutive Hours, Continuous Positive Airway Pressure (ICD-10-PCS; principal; 2022-06-13)
DX: J44.1 Chronic obstructive pulmonary disease with (acute) exacerbation (principal); J96.20 Acute and chronic respiratory failure, unspecified whether with hypoxia or hypercapnia; E44.1 Mild protein-calorie malnutrition; E11.42 Type 2 diabetes mellitus with diabetic polyneuropathy; I50.30 Unspecified diastolic (congestive) heart failure; I11.0 Hypertensive heart disease with heart failure; F12.90 Cannabis use, unspecified, uncomplicated; F14.90 Cocaine use, unspecified, uncomplicated; R79.89 Other specified abnormal findings of blood chemistry; Z20.822 Contact with and (suspected) exposure to COVID-19; Z99.81 Dependence on supplemental oxygen; Z88.5 Allergy status to narcotic agent; Z87.891 Personal history of nicotine dependence; Z79.84 Long term (current) use of oral hypoglycemic drugs; Z68.1 Body mass index [BMI] 19.9 or less, adult
CPT/HCPCS: 36415; 71045; 80053; 83880; 84484; 85025; 87426; 93005; 94640; 94660; 99291; C9803; J1885; J2920

== ENCOUNTER 2022-07-06 07:56 | Inpatient (IN) | payer MEDICARE, OTHER ==
[~2022-07-06] VITALS: Ht 175.3 cm; Wt 59.4 kg
[~2022-07-06 07:56] MED LIST changes: -FLUT1AER5 INH; -FURO-152 MT; -GABA100C MT; -MED4 MT; +P20 MT
[2022-07-06] MEDS ORDERED: ALBUTEROL (0.083%) 2.5MG/3ML NEB HHN STA (08:12)
[2022-07-06] MEDS ORDERED: IPRATROPIUM BROMIDE (0.02%) 0.5MG/2.5ML NEB HHN STA (08:12)
[2022-07-06] MEDS ORDERED: FUROSEMIDE 40MG/4ML VIAL IVP ONE (09:00)
[2022-07-06] MEDS ORDERED: ASPIRIN 81MG TABLET PO ONE (09:00)
[2022-07-06 09:16] LABS: BASOPHILS % 0.7 % (0.0-2.0); EOSINOPHILS % 0.9 % (0.0-5.0); HEMATOCRIT. 41.4 % (42.0-52.0); HEMOGLOBIN. 13.2 g/dL (14.0-18.0); LYMPHOCYTES % 17.4 % (20.0-50.0); MEAN CORPUSCULAR HEMOGLOBIN 31.5 pg (28.0-32.0); MONOCYTES % 10.8 % (2.0-8.0); NEUTROPHILS % 70.2 % (40.0-76.0); PLATELET 269 x1000/uL (130-400); RED BLOOD CELL COUNT 4.18 mill/uL (4.7-6.1); RED CELL DISTRIBUTION WIDTH 14.8 % (11.6-14.6)
[2022-07-06 09:26] LABS: CHLORIDE 105 mEq/L (98-107)
[2022-07-06] MEDS ORDERED: HYDROCODONE/ACETAMINOPHEN 5/325MG TABLET PO ONE (09:45)
[2022-07-06] MEDS ORDERED: METHYLPREDNISOLONE SOD SUCC 125 MG/2 ML VIAL IV ONE (10:15)
[2022-07-06 10:55] LABS: *AMPHETAMINES SCREEN URINE NEGATIVE (NEGATIVE); *BARBITURATES SCREEN URINE NEGATIVE (NEGATIVE); *BENZODIAZEPINES SCREEN URINE NEGATIVE (NEGATIVE); *COCAINE SCREEN URINE PRESUMTIVE POSITIVE (NEGATIVE); CANNABINOID URINE SCREEN NEGATIVE (NEGATIVE); METHADONE URINE SCREEN NEGATIVE (NEGATIVE); OPIATES URINE SCREEN NEGATIVE (NEGATIVE); PHENCYCLIDINE URINE SCREEN NEGATIVE (NEGATIVE)
[2022-07-06 12:35] VITALS: BP 124/69
[2022-07-06] MEDS ORDERED: ACETAMINOPHEN 325MG TABLET PO PRN ×2 (13:45)
[2022-07-06] MEDS ORDERED: CLONIDINE 0.1MG TABLET PO PRN (13:45)
[2022-07-06] MEDS ORDERED: ONDANSETRON HCL 4MG/2ML INJ IV PRN (13:45)
[2022-07-06] MEDS ORDERED: DOCUSATE SODIUM 100MG CAPSULE PO PRN (13:45)
[2022-07-06] MEDS ORDERED: LORAZEPAM 0.5MG TABLET PO PRN (13:45)
[2022-07-06] MEDS ORDERED: HYDROCODONE/ACETAMINOPHEN 5/325MG TABLET PO PRN (13:45)
[2022-07-06] MEDS ORDERED: NALOXONE HCL 0.4MG/ML VIAL IV PRN (14:00)
[2022-07-06] MEDS: HYDROCODONE/ACETAMINOPHEN 10/325MG TABLET PO PRN ×2 (14:22→20:41)
[2022-07-06 15:18] VITALS: BP 124/68
[2022-07-06 16:00] VITALS: BP 145/77
[2022-07-06] MEDS: GABAPENTIN 400MG CAPSULE PO SCH (17:02)
[2022-07-06] MEDS: PREDNISONE 20MG TABLET PO SCH (17:02)
[2022-07-06 20:00] VITALS: BP 150/71
[2022-07-07] VITALS (7 sets, daily range): BP systolic 111–168; BP diastolic 52–75
[2022-07-07] MEDS: HYDROCODONE/ACETAMINOPHEN 10/325MG TABLET PO PRN ×4 (03:04→23:59)
[2022-07-07] MEDS: IPRATROPIUM/ALBUTEROL 0.5-3(2.5)MG/3ML NEB HHN PRN (03:25)
[2022-07-07] MEDS: GABAPENTIN 400MG CAPSULE PO SCH ×3 (06:32→15:53)
[2022-07-07 06:40] LABS: HEMATOCRIT. 41.3 % (42.0-52.0); HEMOGLOBIN. 13.4 g/dL (14.0-18.0); MEAN CORPUSCULAR VOLUME 98.9 fL (80.0-94.0); MEAN PLATELET VOLUME 8.9 fl (7.4-10.4); PLATELET 260 x1000/uL (130-400); RED BLOOD CELL COUNT 4.18 mill/uL (4.7-6.1); RED CELL DISTRIBUTION WIDTH 14.8 % (11.6-14.6)
[2022-07-07 06:56] LABS: CHLORIDE 99 mEq/L (98-107)
[2022-07-07] MEDS: MONTELUKAST SODIUM 10MG TABLET PO SCH ×2 (08:05→15:50)
[2022-07-07] MEDS: AMLODIPINE 10MG TABLET PO SCH (08:05)
[2022-07-07] MEDS: PREDNISONE 20MG TABLET PO SCH ×2 (08:05→15:49)
[2022-07-07] MEDS: ENOXAPARIN 40MG/0.4ML SYR SUBCUT SCH (08:59)
[2022-07-07 12:36] LABS: PLATELET ESTIMATE NORMAL
[2022-07-07] MEDS ORDERED: ALBUTEROL (0.083%) 2.5MG/3ML NEB HHN NR (15:45)
[2022-07-08 04:00] VITALS: BP 120/58
[2022-07-08] MEDS: AMLODIPINE 10MG TABLET PO SCH (07:41)
[2022-07-08 07:47] LABS: BASOPHILS % 0.1 % (0.0-2.0); HEMATOCRIT. 37.1 % (42.0-52.0); HEMOGLOBIN. 11.9 g/dL (14.0-18.0); LYMPHOCYTES % 10.4 % (20.0-50.0); MEAN CORPUSCULAR HEMOGLOBIN 31.8 pg (28.0-32.0); MEAN CORPUSCULAR VOLUME 98.9 fL (80.0-94.0); MEAN PLATELET VOLUME 9.2 fl (7.4-10.4); MONOCYTES % 7.2 % (2.0-8.0); NEUTROPHILS % 82.3 % (40.0-76.0); PLATELET 270 x1000/uL (130-400); RED BLOOD CELL COUNT 3.76 mill/uL (4.7-6.1); RED CELL DISTRIBUTION WIDTH 15.1 % (11.6-14.6)
[2022-07-08] MEDS: PREDNISONE 20MG TABLET PO SCH ×2 (07:47→16:09)
[2022-07-08] MEDS: MONTELUKAST SODIUM 10MG TABLET PO SCH (07:48)
[2022-07-08] MEDS: GABAPENTIN 400MG CAPSULE PO SCH ×3 (07:48→16:09)
[2022-07-08] MEDS: ENOXAPARIN 40MG/0.4ML SYR SUBCUT SCH (07:48)
[2022-07-08 08:00] VITALS: BP 121/66
[2022-07-08 08:01] LABS: CHLORIDE 104 mEq/L (98-107)
[2022-07-08 12:00] VITALS: BP 131/76
[2022-07-08] MEDS: HYDROCODONE/ACETAMINOPHEN 10/325MG TABLET PO PRN ×2 (12:43→21:56)
[2022-07-08] MEDS: IPRATROPIUM/ALBUTEROL 0.5-3(2.5)MG/3ML NEB HHN PRN (15:34)
[2022-07-08 15:47] VITALS: BP 109/59
[2022-07-08] MEDS: GUAIFENESIN 600MG ER TABLET PO SCH ×2 (16:42→21:54)
[2022-07-08 20:00] VITALS: BP 120/53
[2022-07-08] MEDS: HYDRALAZINE HCL 25MG TABLET PO SCH (21:54)
[2022-07-09] VITALS: BP 121/61
[2022-07-09 04:00] VITALS: BP 127/74
[2022-07-09] MEDS: BENZONATATE 100MG CAPSULE PO PRN ×2 (04:25→17:07)
[2022-07-09] MEDS: HYDROCODONE/ACETAMINOPHEN 10/325MG TABLET PO PRN ×4 (04:27→23:05)
[2022-07-09 07:56] VITALS: BP 152/84
[2022-07-09] MEDS: HYDRALAZINE HCL 25MG TABLET PO SCH ×2 (08:14→21:20)
[2022-07-09] MEDS: GABAPENTIN 400MG CAPSULE PO SCH ×3 (08:14→17:07)
[2022-07-09] MEDS: PREDNISONE 20MG TABLET PO SCH ×2 (08:14→17:07)
[2022-07-09] MEDS: MONTELUKAST SODIUM 10MG TABLET PO SCH (08:14)
[2022-07-09] MEDS: GUAIFENESIN 600MG ER TABLET PO SCH ×2 (08:14→21:20)
[2022-07-09] MEDS: ENOXAPARIN 30MG/0.3ML SYR SUBCUT SCH (08:15)
[2022-07-09 12:00] VITALS: BP 123/63
[2022-07-09 15:46] VITALS: BP 149/74
[2022-07-09 20:00] VITALS: BP 146/77
[2022-07-10] VITALS: BP 139/80
[2022-07-10] MEDS: BENZONATATE 100MG CAPSULE PO PRN (01:16)
[2022-07-10 04:00] VITALS: BP 146/65
[2022-07-10] MEDS: HYDROCODONE/ACETAMINOPHEN 10/325MG TABLET PO PRN ×2 (05:14→11:55)
[2022-07-10 08:00] VITALS: BP 132/70
[2022-07-10] MEDS: HYDRALAZINE HCL 25MG TABLET PO SCH (08:59)
[2022-07-10] MEDS: GABAPENTIN 400MG CAPSULE PO SCH (08:59)
[2022-07-10] MEDS: PREDNISONE 20MG TABLET PO SCH (08:59)
[2022-07-10] MEDS: MONTELUKAST SODIUM 10MG TABLET PO SCH (09:00)
[2022-07-10] MEDS: GUAIFENESIN 600MG ER TABLET PO SCH (09:00)
[2022-07-10] MEDS: ENOXAPARIN 30MG/0.3ML SYR SUBCUT SCH (09:04)
[2022-07-10 12:00] VITALS: BP 132/70
[2022-07-10] MEDS ORDERED: HYDR-4009 MT (12:09)
[2022-07-10] MEDS ORDERED: AMLO5TAB88 MT (12:09)
[2022-07-10] MEDS ORDERED: GUAI600T44 PO (12:09)
[2022-07-10] MEDS ORDERED: ALBU6.7H9 INH (12:09)
[2022-07-10] MEDS ORDERED: BENZ100C86 PO (12:09)
[2022-07-10] MEDS ORDERED: MONT10TA21 MT (12:09)
[2022-07-10] MEDS ORDERED: HYDR-4134 PO (12:09)
[2022-07-10] MEDS ORDERED: IPRA3AMP9 NEB (12:09)
[2022-07-10] MEDS ORDERED: FLUT1DIS3 INH (12:09)
[2022-07-10 15:59] VITALS: BP 132/70
[2022-07-10 16:00] VITALS: BP 129/78
== END 2022-07-10 16:45 | disposition home or self-care (01) | DRG 816 ==
LOC: ER 08:17 → 8WST 10:58 → ENRESERV 11:28
PROVIDERS: ADMIT Internal Medicine; ATTEND Internal Medicine
DX: T40.5X1A Poisoning by cocaine, accidental (unintentional), initial encounter (principal); J96.20 Acute and chronic respiratory failure, unspecified whether with hypoxia or hypercapnia; I27.20 Pulmonary hypertension, unspecified; I11.0 Hypertensive heart disease with heart failure; I50.30 Unspecified diastolic (congestive) heart failure; E11.42 Type 2 diabetes mellitus with diabetic polyneuropathy; D53.9 Nutritional anemia, unspecified; J68.0 Bronchitis and pneumonitis due to chemicals, gases, fumes and vapors; J44.1 Chronic obstructive pulmonary disease with (acute) exacerbation; D72.821 Monocytosis (symptomatic); F14.10 Cocaine abuse, uncomplicated; R00.1 Bradycardia, unspecified; F14.188 Cocaine abuse with other cocaine-induced disorder; F15.10 Other stimulant abuse, uncomplicated; G89.29 Other chronic pain; M19.90 Unspecified osteoarthritis, unspecified site; F17.210 Nicotine dependence, cigarettes, uncomplicated; Z88.8 Allergy status to other drugs, medicaments and biological substances; Z99.81 Dependence on supplemental oxygen; Z79.899 Other long term (current) drug therapy; Y92.89 Other specified places as the place of occurrence of the external cause; I20.9 Angina pectoris, unspecified
CPT/HCPCS: 36415; 71045; 80048; 80053; 80305; 83880; 84484; 85025; 85379; 93005; 93306; 94640; 99285; J1650; J1940; J2930; J7512

== ENCOUNTER 2022-08-06 19:41 | Inpatient (IN) | payer MEDICARE, OTHER ==
[~2022-08-06] VITALS: Ht 175.3 cm; Wt 59.9 kg
[~2022-08-06 19:41] MED LIST changes: +ALBU6.7H3 INH; -ALBU6.7H9 INH; -AMLO10TA80 MT; +AMLO5TAB88 MT; +GUAI600T44 PO; +HYDR-4134 PO; -LISI20TA31 MT
[2022-08-06] MEDS ORDERED: IPRATROPIUM/ALBUTEROL 0.5-3(2.5)MG/3ML NEB HHN ONE (20:15)
[2022-08-06] MEDS ORDERED: METHYLPREDNISOLONE SOD SUCC 125 MG/2 ML VIAL IV ONE (20:15)
[2022-08-06 21:58] LABS: BASOPHILS % 0.4 % (0.0-2.0); EOSINOPHILS % 0.8 % (0.0-5.0); HEMOGLOBIN. 13.9 g/dL (14.0-18.0); LYMPHOCYTES % 15.1 % (20.0-50.0); MEAN CORPUSCULAR HEMOGLOBIN 32.9 pg (28.0-32.0); MEAN CORPUSCULAR VOLUME 97.1 fL (80.0-94.0); MONOCYTES % 9.5 % (2.0-8.0); NEUTROPHILS % 74.2 % (40.0-76.0); PLATELET 324 x1000/uL (130-400); RED BLOOD CELL COUNT 4.23 mill/uL (4.7-6.1); RED CELL DISTRIBUTION WIDTH 13.9 % (11.6-14.6)
[2022-08-06] MEDS ORDERED: METHYLPREDNISOLONE SOD SUCC 125 MG/2 ML VIAL IV NR (22:00)
[2022-08-06 22:05] LABS: CHLORIDE 101 mEq/L (98-107)
[2022-08-07] VITALS (11 sets, daily range): BP systolic 119–160; BP diastolic 52–118
[2022-08-07] MEDS ORDERED: DEXTROSE 50% WATER 50ML SYRINGE IV PRN (04:15)
[2022-08-07] MEDS ORDERED: IPRATROPIUM/ALBUTEROL 0.5-3(2.5)MG/3ML NEB HHN PRN (04:15)
[2022-08-07] MEDS ORDERED: GUAIFENESIN/DM 600MG/30MG ER TAB 12HR PO PRN (04:30)
[2022-08-07] MEDS: HYDROCODONE/ACETAMINOPHEN 10/325MG TABLET PO PRN ×5 (04:40→21:23)
[2022-08-07] MEDS ORDERED: NALOXONE HCL 0.4MG/ML VIAL IV PRN (04:45)
[2022-08-07] MEDS: METHYLPREDNISOLONE SOD SUCC 40 MG/ML VIAL IV SCH ×3 (05:33→17:16)
[2022-08-07] MEDS: GABAPENTIN 400MG CAPSULE PO SCH ×3 (05:33→20:34)
[2022-08-07] MEDS: BLOOD SUGAR DIAGNOSTIC STRIP TEST SCH ×4 (08:21→20:35)
[2022-08-07] MEDS: BUDESONIDE 0.5MG/2ML NEB HHN SCH ×2 (08:29→20:53)
[2022-08-07] MEDS: IPRATROPIUM/ALBUTEROL 0.5-3(2.5)MG/3ML NEB HHN SCH ×4 (08:30→20:53)
[2022-08-07] MEDS: HYDRALAZINE HCL 25MG TABLET PO SCH ×2 (08:41→20:35)
[2022-08-07] MEDS: METFORMIN HCL 500MG TABLET PO SCH ×2 (08:41→17:17)
[2022-08-07] MEDS: GUAIFENESIN 600MG ER TABLET PO SCH ×2 (08:42→20:35)
[2022-08-07] MEDS: AMLODIPINE 10MG TABLET PO SCH (08:42)
[2022-08-07] MEDS: INSULIN LISPRO 100 UNITS/ML SUBCUT SCH ×4 (08:47→20:34)
[2022-08-07 16:07] LABS: HEMATOCRIT. 38.4 % (42.0-52.0); HEMOGLOBIN. 12.6 g/dL (14.0-18.0); MEAN CORPUSCULAR HEMOGLOBIN 32.1 pg (28.0-32.0); MEAN CORPUSCULAR VOLUME 97.5 fL (80.0-94.0); MEAN PLATELET VOLUME 8.4 fl (7.4-10.4); PLATELET 282 x1000/uL (130-400); RED BLOOD CELL COUNT 3.93 mill/uL (4.7-6.1)
[2022-08-07 16:36] LABS: CHLORIDE 98 mEq/L (98-107)
[2022-08-07 16:46] LABS: HDL CHOLESTEROL 67 mg/dL (40-59); LDL CHOLESTEROL 71 mg/dL (5-100)
[2022-08-07] MEDS: MONTELUKAST SODIUM 10MG TABLET PO SCH (17:16)
[2022-08-07 17:23] LABS: PLATELET ESTIMATE NORMAL
[2022-08-07 18:06] LABS: *AMPHETAMINES SCREEN URINE NEGATIVE (NEGATIVE); *BARBITURATES SCREEN URINE NEGATIVE (NEGATIVE); *BENZODIAZEPINES SCREEN URINE NEGATIVE (NEGATIVE); *COCAINE SCREEN URINE PRESUMTIVE POSITIVE (NEGATIVE); CANNABINOID URINE SCREEN NEGATIVE (NEGATIVE); METHADONE URINE SCREEN NEGATIVE (NEGATIVE); OPIATES URINE SCREEN PRESUMTIVE POSITIVE (NEGATIVE); PHENCYCLIDINE URINE SCREEN NEGATIVE (NEGATIVE)
[2022-08-08] VITALS: BP 149/73
[2022-08-08] MEDS: METHYLPREDNISOLONE SOD SUCC 40 MG/ML VIAL IV SCH ×4 (00:04→18:00)
[2022-08-08] MEDS: IPRATROPIUM/ALBUTEROL 0.5-3(2.5)MG/3ML NEB HHN SCH ×6 (01:05→21:13)
[2022-08-08] MEDS: HYDROCODONE/ACETAMINOPHEN 10/325MG TABLET PO PRN ×5 (01:09→18:33)
[2022-08-08] MEDS ORDERED: GUAIFENESIN-DM 200MG-20MG/10ML UDC PO PRN (02:45)
[2022-08-08] MEDS: GABAPENTIN 400MG CAPSULE PO SCH ×2 (05:09→13:59)
[2022-08-08 08:00] VITALS: BP 141/63
[2022-08-08] MEDS: BLOOD SUGAR DIAGNOSTIC STRIP TEST SCH ×4 (08:20→20:51)
[2022-08-08] MEDS ORDERED: P20 MT ×2 (08:51)
[2022-08-08] MEDS: AMLODIPINE 10MG TABLET PO SCH (08:58)
[2022-08-08] MEDS: GUAIFENESIN 600MG ER TABLET PO SCH ×2 (08:58→20:50)
[2022-08-08] MEDS: METFORMIN HCL 500MG TABLET PO SCH ×2 (08:58→18:33)
[2022-08-08] MEDS: HYDRALAZINE HCL 25MG TABLET PO SCH ×2 (08:59→20:50)
[2022-08-08] MEDS: INSULIN LISPRO 100 UNITS/ML SUBCUT SCH ×4 (09:02→20:52)
[2022-08-08] MEDS ORDERED: IPRA3AMP9 NEB (11:00)
[2022-08-08] MEDS: BUDESONIDE 0.5MG/2ML NEB HHN SCH ×2 (11:07→21:13)
[2022-08-08 12:00] VITALS: BP 136/65
[2022-08-08 16:00] VITALS: BP 138/70
[2022-08-08] MEDS: MONTELUKAST SODIUM 10MG TABLET PO SCH (18:33)
[2022-08-08 20:00] VITALS: BP 138/77
[2022-08-08 20:16] VITALS: BP 138/77
[2022-08-14] MEDS ORDERED: FAMO20TA8 MT (11:36)
[2022-08-14] MEDS ORDERED: FLUT1DIS3 INH (11:36)
[2022-08-14] MEDS ORDERED: P20 MT (11:36)
[2022-08-14] MEDS ORDERED: ALBU6.7H3 INH (11:36)
[2022-08-14] MEDS ORDERED: NEOM10DR11 LEFT EAR (11:36)
[2022-08-14] MEDS ORDERED: HYDR-4005 MT ×2 (13:18)
[2022-08-15] MEDS ORDERED: IPRA3AMP9 HHN (18:52)
== END 2022-08-08 23:46 | disposition home or self-care (01) | DRG 140 ==
LOC: ER 19:41 → MICUSO 21:43 → EDBEDREQ 21:45 → EDBEDREQTM 21:45 → 5EST 08-07 03:13
PROVIDERS: ADMIT Internal Medicine; ATTEND Internal Medicine
PROC: 5A09357 Assistance with Respiratory Ventilation, Less than 24 Consecutive Hours, Continuous Positive Airway Pressure (ICD-10-PCS; principal; 2022-08-06)
DX: J44.1 Chronic obstructive pulmonary disease with (acute) exacerbation (principal); J96.20 Acute and chronic respiratory failure, unspecified whether with hypoxia or hypercapnia; J68.0 Bronchitis and pneumonitis due to chemicals, gases, fumes and vapors; I11.0 Hypertensive heart disease with heart failure; I50.30 Unspecified diastolic (congestive) heart failure; E87.5 Hyperkalemia; E11.42 Type 2 diabetes mellitus with diabetic polyneuropathy; F14.10 Cocaine abuse, uncomplicated; Z79.899 Other long term (current) drug therapy; Z88.8 Allergy status to other drugs, medicaments and biological substances
CPT/HCPCS: 36415; 71045; 80048; 80053; 80061; 80305; 82962; 83036; 83880; 84484; 85025; 93005; 94640; 94660; 99291; J1815; J2920; J2930; J7626

== ENCOUNTER 2022-09-01 17:03 | Inpatient (IN) | payer MEDICARE, OTHER ==
[~2022-09-01] VITALS: Ht 175.3 cm; Wt 57.2 kg
[~2022-09-01 17:03] MED LIST changes: +FAMO20TA8 MT; -HYDR-4009 MT; +IPRA3AMP9 HHN; +NEOM10DR11 LEFT EAR
[2022-09-01] MEDS ORDERED: METHYLPREDNISOLONE SOD SUCC 125 MG/2 ML VIAL IV STA (17:09)
[2022-09-01] MEDS ORDERED: IPRATROPIUM BROMIDE (0.02%) 0.5MG/2.5ML NEB HHN STA (17:09)
[2022-09-01] MEDS: ALBUTEROL (0.083%) 2.5MG/3ML NEB HHN SCH ×3 (17:26→18:30)
[2022-09-01 18:27] LABS: BASOPHILS % 0.3 % (0.0-2.0); EOSINOPHILS % 0.5 % (0.0-5.0); HEMATOCRIT. 46.9 % (42.0-52.0); HEMOGLOBIN. 15.2 g/dL (14.0-18.0); LYMPHOCYTES % 9.2 % (20.0-50.0); MEAN CORPUSCULAR HEMOGLOBIN 32.1 pg (28.0-32.0); MEAN CORPUSCULAR VOLUME 99.1 fL (80.0-94.0); MEAN PLATELET VOLUME 9.2 fl (7.4-10.4); MONOCYTES % 5.1 % (2.0-8.0); NEUTROPHILS % 84.9 % (40.0-76.0); PLATELET 282 x1000/uL (130-400); RED BLOOD CELL COUNT 4.73 mill/uL (4.7-6.1); RED CELL DISTRIBUTION WIDTH 14.3 % (11.6-14.6)
[2022-09-01 18:34] LABS: CHLORIDE 96 mEq/L (98-107)
[2022-09-01 20:05] LABS: BG BASE EXCESS 4.3 mmol/L (-2.0-2.0); BG CARBOXYHEMOGLOBIN 3.7 % (0.5-1.5); BG DEOXYHEMOGLOBIN 6.5 % (0.0-5.0); BG FRACTION INSPIRED OXYGEN 28; BG HCO3 ACT 30.8 mmol/L (22.0-26.0); BG METHEMOGLOBIN 0.1 % (0.0-1.5); BG OXYGEN SATURATION 93.2 % (92.0-98.5); BG OXYHEMOGLOBIN 89.7 % (94.0-97.0); BG PCO2 53.7 mmHg (35.0-45.0); BG PH 7.376 (7.350-7.450); BG PO2 64.9 mmHg (75.0-100.0); BG SAMPLE SITE RIGHT RADIAL; BG TOTAL HEMOGLOBIN 13.9 g/dL (12.0-18.0); BG VENT MODE NASAL CANNULA
[2022-09-01 21:50] VITALS: BP 133/78
[2022-09-01] MEDS ORDERED: INFLUENZA VACCINE 05/PF 0.5 ML SYRINGE IM ONE (23:45)
[2022-09-02] VITALS: BP 135/80
[2022-09-02] MEDS: METHYLPREDNISOLONE SOD SUCC 40 MG/ML VIAL IV SCH ×4 (01:00→20:59)
[2022-09-02] MEDS: HYDROCODONE/ACETAMINOPHEN 5/325MG TABLET PO PRN ×5 (01:10→21:58)
[2022-09-02 04:00] VITALS: BP 131/82
[2022-09-02] MEDS: IPRATROPIUM/ALBUTEROL 0.5-3(2.5)MG/3ML NEB HHN PRN ×2 (04:30→19:52)
[2022-09-02 05:28] LABS: HEMATOCRIT. 38.7 % (42.0-52.0); HEMOGLOBIN. 12.8 g/dL (14.0-18.0); MEAN CORPUSCULAR VOLUME 99.7 fL (80.0-94.0); MEAN PLATELET VOLUME 8.7 fl (7.4-10.4); PLATELET 230 x1000/uL (130-400); RED BLOOD CELL COUNT 3.89 mill/uL (4.7-6.1); RED CELL DISTRIBUTION WIDTH 14.3 % (11.6-14.6)
[2022-09-02 05:42] LABS: *AMPHETAMINES SCREEN URINE NEGATIVE (NEGATIVE); *BARBITURATES SCREEN URINE NEGATIVE (NEGATIVE); *BENZODIAZEPINES SCREEN URINE NEGATIVE (NEGATIVE); *COCAINE SCREEN URINE PRESUMTIVE POSITIVE (NEGATIVE); CANNABINOID URINE SCREEN NEGATIVE (NEGATIVE); METHADONE URINE SCREEN NEGATIVE (NEGATIVE); OPIATES URINE SCREEN PRESUMTIVE POSITIVE (NEGATIVE); PHENCYCLIDINE URINE SCREEN NEGATIVE (NEGATIVE)
[2022-09-02 05:49] LABS: CHLORIDE 97 mEq/L (98-107)
[2022-09-02 05:59] LABS: CREATINE KINASE 66 IU/L (39-308); CREATINE KINASE MB FRACTION 5.8 ng/mL (0.5-3.6)
[2022-09-02 07:56] VITALS: BP 136/68
[2022-09-02] MEDS: ENOXAPARIN 40MG/0.4ML SYR SUBCUT SCH (10:02)
[2022-09-02] MEDS: AZITHROMYCIN 500 MG TABLET PO SCH (10:02)
[2022-09-02 11:50] VITALS: BP 172/92
[2022-09-02] MEDS ORDERED: NALOXONE HCL 0.4MG/ML VIAL IV PRN (12:00)
[2022-09-02] MEDS: AMLODIPINE 5MG TABLET PO SCH (12:23)
[2022-09-02] MEDS: MONTELUKAST SODIUM 10MG TABLET PO SCH (12:23)
[2022-09-02 12:26] LABS: PLATELET ESTIMATE NORMAL
[2022-09-02] MEDS: GABAPENTIN 400MG CAPSULE PO SCH ×2 (12:26→15:26)
[2022-09-02 16:24] VITALS: BP 118/82
[2022-09-02] MEDS: FAMOTIDINE 20MG TABLET PO SCH (16:56)
[2022-09-02 20:00] VITALS: BP 165/81
[2022-09-02] MEDS: BENZONATATE 100MG CAPSULE PO PRN (20:58)
[2022-09-02] MEDS: HYDRALAZINE HCL 25MG TABLET PO SCH (20:58)
[2022-09-02] MEDS: GUAIFENESIN 600MG ER TABLET PO SCH (20:58)
[2022-09-02] MEDS: CLONIDINE 0.1MG TABLET PO PRN (20:59)
[2022-09-03] VITALS: BP 126/69
[2022-09-03] MEDS: IPRATROPIUM/ALBUTEROL 0.5-3(2.5)MG/3ML NEB HHN PRN ×2 (00:24→03:48)
[2022-09-03 04:00] VITALS: BP 130/69
[2022-09-03] MEDS: METHYLPREDNISOLONE SOD SUCC 40 MG/ML VIAL IV SCH ×3 (06:40→21:51)
[2022-09-03] MEDS: HYDROCODONE/ACETAMINOPHEN 5/325MG TABLET PO PRN ×4 (06:41→21:50)
[2022-09-03 07:14] LABS: HEMATOCRIT. 34.1 % (42.0-52.0); HEMOGLOBIN. 11.3 g/dL (14.0-18.0); MEAN CORPUSCULAR HEMOGLOBIN 32.7 pg (28.0-32.0); MEAN CORPUSCULAR VOLUME 98.7 fL (80.0-94.0); MEAN PLATELET VOLUME 8.8 fl (7.4-10.4); PLATELET 227 x1000/uL (130-400); RED BLOOD CELL COUNT 3.46 mill/uL (4.7-6.1)
[2022-09-03 08:00] VITALS: BP 133/84
[2022-09-03 08:05] LABS: CHLORIDE 98 mEq/L (98-107)
[2022-09-03] MEDS: AMLODIPINE 5MG TABLET PO SCH (08:36)
[2022-09-03] MEDS: GUAIFENESIN 600MG ER TABLET PO SCH ×2 (08:36→21:50)
[2022-09-03] MEDS: MONTELUKAST SODIUM 10MG TABLET PO SCH (08:37)
[2022-09-03] MEDS: AZITHROMYCIN 500 MG TABLET PO SCH (08:37)
[2022-09-03] MEDS: FAMOTIDINE 20MG TABLET PO SCH ×2 (08:37→17:15)
[2022-09-03] MEDS: HYDRALAZINE HCL 25MG TABLET PO SCH ×2 (08:37→21:50)
[2022-09-03] MEDS: GABAPENTIN 400MG CAPSULE PO SCH ×3 (08:37→17:15)
[2022-09-03] MEDS: ENOXAPARIN 40MG/0.4ML SYR SUBCUT SCH (08:38)
[2022-09-03 12:00] VITALS: BP 120/68
[2022-09-03 16:00] VITALS: BP 151/75
[2022-09-03 20:00] VITALS: BP 150/63
[2022-09-03 20:49] LABS: PLATELET ESTIMATE NORMAL
[2022-09-03] MEDS: BENZONATATE 100MG CAPSULE PO PRN (21:50)
[2022-09-04] VITALS: BP 138/69
[2022-09-04 04:00] VITALS: BP 143/71
[2022-09-04] MEDS: HYDROCODONE/ACETAMINOPHEN 5/325MG TABLET PO PRN ×3 (06:15→20:51)
[2022-09-04] MEDS: METHYLPREDNISOLONE SOD SUCC 40 MG/ML VIAL IV SCH ×3 (06:15→20:46)
[2022-09-04 08:00] VITALS: BP 174/81
[2022-09-04] MEDS: GUAIFENESIN 600MG ER TABLET PO SCH ×2 (08:14→20:46)
[2022-09-04] MEDS: HYDRALAZINE HCL 25MG TABLET PO SCH ×2 (08:14→20:52)
[2022-09-04] MEDS: GABAPENTIN 400MG CAPSULE PO SCH ×3 (08:14→16:10)
[2022-09-04] MEDS: AZITHROMYCIN 500 MG TABLET PO SCH (08:14)
[2022-09-04] MEDS: AMLODIPINE 5MG TABLET PO SCH (08:14)
[2022-09-04] MEDS: FAMOTIDINE 20MG TABLET PO SCH ×2 (08:14→16:10)
[2022-09-04] MEDS: MONTELUKAST SODIUM 10MG TABLET PO SCH (08:14)
[2022-09-04] MEDS: ENOXAPARIN 40MG/0.4ML SYR SUBCUT SCH (08:14)
[2022-09-04 12:00] VITALS: BP 162/94
[2022-09-04] MEDS ORDERED: MONT10TA21 PO (12:27)
[2022-09-04] MEDS ORDERED: HYDR-4134 PO (12:27)
[2022-09-04] MEDS ORDERED: AMLO5TAB88 PO (12:27)
[2022-09-04] MEDS ORDERED: FAMO20TA8 PO (12:27)
[2022-09-04] MEDS ORDERED: BENZ100C86 PO (12:27)
[2022-09-04] MEDS ORDERED: GABA-533 PO (12:27)
[2022-09-04] MEDS ORDERED: GUAI600T44 PO (12:27)
[2022-09-04] MEDS: IPRATROPIUM/ALBUTEROL 0.5-3(2.5)MG/3ML NEB HHN PRN ×2 (12:54→21:18)
[2022-09-04 16:00] VITALS: BP 115/76
[2022-09-04 20:00] VITALS: BP 158/81
[2022-09-04] MEDS: BENZONATATE 100MG CAPSULE PO PRN (20:46)
[2022-09-05] VITALS: BP 153/71
[2022-09-05] MEDS: HYDROCODONE/ACETAMINOPHEN 5/325MG TABLET PO PRN ×4 (00:51→21:21)
[2022-09-05 04:00] VITALS: BP 169/96
[2022-09-05] MEDS: METHYLPREDNISOLONE SOD SUCC 40 MG/ML VIAL IV SCH ×3 (06:10→21:03)
[2022-09-05] MEDS: CLONIDINE 0.1MG TABLET PO PRN ×2 (06:15→11:56)
[2022-09-05 08:14] VITALS: BP 152/108
[2022-09-05] MEDS: GUAIFENESIN 600MG ER TABLET PO SCH ×2 (08:23→21:04)
[2022-09-05] MEDS: AMLODIPINE 5MG TABLET PO SCH (08:23)
[2022-09-05] MEDS: HYDRALAZINE HCL 25MG TABLET PO SCH ×2 (08:23→21:04)
[2022-09-05] MEDS: AZITHROMYCIN 500 MG TABLET PO SCH (08:23)
[2022-09-05] MEDS: FAMOTIDINE 20MG TABLET PO SCH ×2 (08:23→17:14)
[2022-09-05] MEDS: GABAPENTIN 400MG CAPSULE PO SCH ×3 (08:23→17:14)
[2022-09-05] MEDS: MONTELUKAST SODIUM 10MG TABLET PO SCH (08:26)
[2022-09-05] MEDS: ENOXAPARIN 40MG/0.4ML SYR SUBCUT SCH (08:27)
[2022-09-05 11:39] VITALS: BP 178/96
[2022-09-05 16:17] VITALS: BP 178/88
[2022-09-05] MEDS: IPRATROPIUM/ALBUTEROL 0.5-3(2.5)MG/3ML NEB HHN PRN (17:04)
[2022-09-05] MEDS: RISPERIDONE 0.25MG TABLET PO SCH (17:14)
[2022-09-05 20:00] VITALS: BP 134/69
[2022-09-06] VITALS: BP 149/56
[2022-09-06] MEDS: HYDROCODONE/ACETAMINOPHEN 5/325MG TABLET PO PRN ×6 (01:21→21:55)
[2022-09-06 04:00] VITALS: BP 159/72
[2022-09-06] MEDS: METHYLPREDNISOLONE SOD SUCC 40 MG/ML VIAL IV SCH ×3 (05:22→21:56)
[2022-09-06 08:00] VITALS: BP 162/73
[2022-09-06] MEDS: ENOXAPARIN 40MG/0.4ML SYR SUBCUT SCH (09:24)
[2022-09-06] MEDS: RISPERIDONE 0.25MG TABLET PO SCH ×2 (09:25→17:45)
[2022-09-06] MEDS: GUAIFENESIN 600MG ER TABLET PO SCH ×2 (09:25→21:55)
[2022-09-06] MEDS: MONTELUKAST SODIUM 10MG TABLET PO SCH (09:25)
[2022-09-06] MEDS: AMLODIPINE 5MG TABLET PO SCH (09:25)
[2022-09-06] MEDS: HYDRALAZINE HCL 25MG TABLET PO SCH ×2 (09:25→21:55)
[2022-09-06] MEDS: FAMOTIDINE 20MG TABLET PO SCH ×2 (09:26→17:45)
[2022-09-06] MEDS: AZITHROMYCIN 500 MG TABLET PO SCH (09:26)
[2022-09-06] MEDS: GABAPENTIN 400MG CAPSULE PO SCH ×3 (09:26→17:45)
[2022-09-06 12:00] VITALS: BP 197/104
[2022-09-06] MEDS: CLONIDINE 0.1MG TABLET PO PRN (12:06)
[2022-09-06 16:04] VITALS: BP 162/82
[2022-09-06] MEDS: LORAZEPAM 0.5MG TABLET PO PRN (17:05)
[2022-09-06 20:00] VITALS: BP 150/88
[2022-09-07] VITALS: BP 152/88
[2022-09-07] MEDS: HYDROCODONE/ACETAMINOPHEN 5/325MG TABLET PO NR ×2 (01:46→02:14)
[2022-09-07 04:00] VITALS: BP 178/107
[2022-09-07] MEDS: IPRATROPIUM/ALBUTEROL 0.5-3(2.5)MG/3ML NEB HHN PRN (05:21)
[2022-09-07] MEDS: METHYLPREDNISOLONE SOD SUCC 40 MG/ML VIAL IV SCH ×3 (05:37→21:43)
[2022-09-07] MEDS: LORAZEPAM 0.5MG TABLET PO PRN ×2 (05:37→13:33)
[2022-09-07] MEDS: CLONIDINE 0.1MG TABLET PO PRN (05:37)
[2022-09-07] MEDS: HYDROCODONE/ACETAMINOPHEN 5/325MG TABLET PO PRN ×5 (05:53→21:45)
[2022-09-07 08:18] VITALS: BP 143/70
[2022-09-07] MEDS: GABAPENTIN 400MG CAPSULE PO SCH ×3 (09:30→16:40)
[2022-09-07] MEDS: HYDRALAZINE HCL 25MG TABLET PO SCH ×2 (09:30→20:46)
[2022-09-07] MEDS: AMLODIPINE 5MG TABLET PO SCH (09:30)
[2022-09-07] MEDS: GUAIFENESIN 600MG ER TABLET PO SCH ×2 (09:30→20:46)
[2022-09-07] MEDS: MONTELUKAST SODIUM 10MG TABLET PO SCH (09:30)
[2022-09-07] MEDS: AZITHROMYCIN 500 MG TABLET PO SCH (09:30)
[2022-09-07] MEDS: FAMOTIDINE 20MG TABLET PO SCH ×2 (09:30→16:40)
[2022-09-07] MEDS: RISPERIDONE 0.25MG TABLET PO SCH ×2 (09:30→16:40)
[2022-09-07] MEDS: ENOXAPARIN 40MG/0.4ML SYR SUBCUT SCH (09:32)
[2022-09-07 15:55] VITALS: BP 154/79
[2022-09-07 20:00] VITALS: BP 154/62
[2022-09-08] VITALS: BP 161/85
[2022-09-08] MEDS: CLONIDINE 0.1MG TABLET PO PRN (01:01)
[2022-09-08 04:00] VITALS: BP 139/86
[2022-09-08] MEDS: METHYLPREDNISOLONE SOD SUCC 40 MG/ML VIAL IV SCH ×3 (05:19→22:00)
[2022-09-08] MEDS: HYDROCODONE/ACETAMINOPHEN 5/325MG TABLET PO PRN ×2 (07:39→16:23)
[2022-09-08] MEDS: GUAIFENESIN 600MG ER TABLET PO SCH ×2 (07:57→20:01)
[2022-09-08] MEDS: GABAPENTIN 400MG CAPSULE PO SCH ×3 (07:57→16:17)
[2022-09-08] MEDS: BENZONATATE 100MG CAPSULE PO PRN (07:57)
[2022-09-08] MEDS: FAMOTIDINE 20MG TABLET PO SCH ×2 (07:57→16:16)
[2022-09-08 08:00] VITALS: BP 162/6
[2022-09-08] MEDS: IPRATROPIUM/ALBUTEROL 0.5-3(2.5)MG/3ML NEB HHN PRN ×2 (08:07→23:35)
[2022-09-08] MEDS: RISPERIDONE 0.25MG TABLET PO SCH ×2 (09:03→16:17)
[2022-09-08] MEDS: AMLODIPINE 5MG TABLET PO SCH (09:03)
[2022-09-08] MEDS: HYDRALAZINE HCL 25MG TABLET PO SCH ×2 (09:03→20:00)
[2022-09-08] MEDS: MONTELUKAST SODIUM 10MG TABLET PO SCH (09:03)
[2022-09-08] MEDS: ENOXAPARIN 40MG/0.4ML SYR SUBCUT SCH (09:03)
[2022-09-08 12:00] VITALS: BP 155/70
[2022-09-08 16:00] VITALS: BP 160/70
[2022-09-08 20:00] VITALS: BP 162/78
[2022-09-09] VITALS: BP 150/78
[2022-09-09] MEDS: HYDROCODONE/ACETAMINOPHEN 5/325MG TABLET PO PRN ×5 (00:32→23:48)
[2022-09-09 04:00] VITALS: BP 157/72
[2022-09-09] MEDS: METHYLPREDNISOLONE SOD SUCC 40 MG/ML VIAL IV SCH ×3 (05:17→21:28)
[2022-09-09 08:00] VITALS: BP 169/83
[2022-09-09] MEDS: ENOXAPARIN 40MG/0.4ML SYR SUBCUT SCH (09:47)
[2022-09-09] MEDS: AMLODIPINE 5MG TABLET PO SCH (09:48)
[2022-09-09] MEDS: MONTELUKAST SODIUM 10MG TABLET PO SCH (09:48)
[2022-09-09] MEDS: GUAIFENESIN 600MG ER TABLET PO SCH ×2 (09:48→21:28)
[2022-09-09] MEDS: HYDRALAZINE HCL 25MG TABLET PO SCH ×2 (09:49→21:28)
[2022-09-09] MEDS: FAMOTIDINE 20MG TABLET PO SCH ×2 (09:49→17:00)
[2022-09-09] MEDS: GABAPENTIN 400MG CAPSULE PO SCH ×3 (09:49→17:00)
[2022-09-09] MEDS: RISPERIDONE 0.25MG TABLET PO SCH ×2 (09:49→17:00)
[2022-09-09 12:00] VITALS: BP 207/97
[2022-09-09] MEDS: IPRATROPIUM/ALBUTEROL 0.5-3(2.5)MG/3ML NEB HHN PRN ×2 (13:06→21:44)
[2022-09-09] MEDS: LORAZEPAM 0.5MG TABLET PO PRN ×2 (13:11→21:28)
[2022-09-09] MEDS: CLONIDINE 0.1MG TABLET PO PRN (13:12)
[2022-09-09 16:00] VITALS: BP 155/83
[2022-09-09 20:00] VITALS: BP 145/79
[2022-09-10] VITALS: BP 153/81
[2022-09-10] MEDS: HYDROCODONE/ACETAMINOPHEN 5/325MG TABLET PO PRN ×4 (03:57→22:12)
[2022-09-10 04:00] VITALS: BP 152/74
[2022-09-10 07:22] LABS: HEMATOCRIT. 36.2 % (42.0-52.0); HEMOGLOBIN. 11.7 g/dL (14.0-18.0); MEAN CORPUSCULAR HEMOGLOBIN 32.4 pg (28.0-32.0); MEAN CORPUSCULAR VOLUME 100.3 fL (80.0-94.0); MEAN PLATELET VOLUME 8.7 fl (7.4-10.4); PLATELET 224 x1000/uL (130-400); RED BLOOD CELL COUNT 3.61 mill/uL (4.7-6.1); RED CELL DISTRIBUTION WIDTH 14.7 % (11.6-14.6)
[2022-09-10 08:15] VITALS: BP 168/84
[2022-09-10] MEDS: FAMOTIDINE 20MG TABLET PO SCH ×2 (08:58→17:40)
[2022-09-10] MEDS: GABAPENTIN 400MG CAPSULE PO SCH ×3 (08:58→17:40)
[2022-09-10] MEDS: HYDRALAZINE HCL 25MG TABLET PO SCH ×2 (08:58→21:06)
[2022-09-10] MEDS: GUAIFENESIN 600MG ER TABLET PO SCH ×2 (08:58→21:06)
[2022-09-10] MEDS: AMLODIPINE 5MG TABLET PO SCH (08:58)
[2022-09-10] MEDS: RISPERIDONE 0.25MG TABLET PO SCH ×2 (08:58→17:40)
[2022-09-10] MEDS: MONTELUKAST SODIUM 10MG TABLET PO SCH (08:58)
[2022-09-10] MEDS: ENOXAPARIN 40MG/0.4ML SYR SUBCUT SCH (08:59)
[2022-09-10 10:56] LABS: CHLORIDE 92 mEq/L (98-107)
[2022-09-10 11:57] VITALS: BP 159/91
[2022-09-10 13:54] LABS: PLATELET ESTIMATE NORMAL
[2022-09-10] MEDS: METHYLPREDNISOLONE SOD SUCC 40 MG/ML VIAL IV SCH ×3 (14:00→21:06)
[2022-09-10 16:25] VITALS: BP 159/80
[2022-09-10 20:00] VITALS: BP 141/79
[2022-09-11] VITALS: BP 158/80
[2022-09-11] MEDS: IPRATROPIUM/ALBUTEROL 0.5-3(2.5)MG/3ML NEB HHN PRN ×2 (01:37→20:33)
[2022-09-11] MEDS: BENZONATATE 100MG CAPSULE PO PRN (01:42)
[2022-09-11] MEDS: HYDROCODONE/ACETAMINOPHEN 5/325MG TABLET PO PRN ×4 (01:43→21:27)
[2022-09-11 04:00] VITALS: BP 154/92
[2022-09-11] MEDS: METHYLPREDNISOLONE SOD SUCC 40 MG/ML VIAL IV SCH ×3 (06:19→21:27)
[2022-09-11 08:00] VITALS: BP 157/85
[2022-09-11] MEDS: GUAIFENESIN 600MG ER TABLET PO SCH ×2 (09:09→21:28)
[2022-09-11] MEDS: RISPERIDONE 0.25MG TABLET PO SCH ×2 (09:10→17:00)
[2022-09-11] MEDS: AMLODIPINE 5MG TABLET PO SCH (09:11)
[2022-09-11] MEDS: HYDRALAZINE HCL 25MG TABLET PO SCH ×2 (09:11→21:28)
[2022-09-11] MEDS: FAMOTIDINE 20MG TABLET PO SCH ×2 (09:11→17:00)
[2022-09-11] MEDS: MONTELUKAST SODIUM 10MG TABLET PO SCH (09:11)
[2022-09-11] MEDS: GABAPENTIN 400MG CAPSULE PO SCH ×3 (09:11→17:00)
[2022-09-11] MEDS: ENOXAPARIN 40MG/0.4ML SYR SUBCUT SCH (11:13)
[2022-09-11 12:00] VITALS: BP 146/82
[2022-09-11 14:21] VITALS: BP 157/85
[2022-09-11 20:00] VITALS: BP 151/90
[2022-09-12] VITALS: BP 137/70
[2022-09-12] MEDS: IPRATROPIUM/ALBUTEROL 0.5-3(2.5)MG/3ML NEB HHN PRN ×2 (00:13→04:21)
[2022-09-12] MEDS: HYDROCODONE/ACETAMINOPHEN 5/325MG TABLET PO PRN (02:15)
[2022-09-12 04:00] VITALS: BP 148/85
[2022-09-12] MEDS: METHYLPREDNISOLONE SOD SUCC 40 MG/ML VIAL IV SCH ×3 (06:15→22:00)
[2022-09-12] MEDS ORDERED: HYDROCODONE/ACETAMINOPHEN 5/325MG TABLET PO PRN (06:30)
[2022-09-12 08:00] VITALS: BP 172/90
[2022-09-12] MEDS: GABAPENTIN 400MG CAPSULE PO SCH ×3 (09:22→18:05)
[2022-09-12] MEDS: GUAIFENESIN 600MG ER TABLET PO SCH ×2 (09:22→22:17)
[2022-09-12] MEDS: HYDRALAZINE HCL 25MG TABLET PO SCH ×2 (09:25→22:17)
[2022-09-12] MEDS: FAMOTIDINE 20MG TABLET PO SCH ×2 (09:25→17:00)
[2022-09-12] MEDS: AMLODIPINE 5MG TABLET PO SCH (09:25)
[2022-09-12] MEDS: RISPERIDONE 0.25MG TABLET PO SCH ×2 (09:26→17:00)
[2022-09-12] MEDS: MONTELUKAST SODIUM 10MG TABLET PO SCH (09:26)
[2022-09-12] MEDS: ENOXAPARIN 40MG/0.4ML SYR SUBCUT SCH (09:27)
[2022-09-12 12:30] VITALS: BP 160/86
[2022-09-12 15:44] VITALS: BP 122/90
[2022-09-12 20:00] VITALS: BP 138/79
[2022-09-13] VITALS: BP 130/70
[2022-09-13] MEDS: METHYLPREDNISOLONE SOD SUCC 40 MG/ML VIAL IV SCH ×2 (06:00→14:00)
[2022-09-13 08:00] VITALS: BP 130/64
[2022-09-13] MEDS: IPRATROPIUM/ALBUTEROL 0.5-3(2.5)MG/3ML NEB HHN PRN ×3 (09:01→15:56)
[2022-09-13] MEDS: GUAIFENESIN 600MG ER TABLET PO SCH (10:22)
[2022-09-13] MEDS: HYDRALAZINE HCL 25MG TABLET PO SCH (10:22)
[2022-09-13] MEDS: GABAPENTIN 400MG CAPSULE PO SCH ×2 (10:22→13:03)
[2022-09-13] MEDS: ENOXAPARIN 40MG/0.4ML SYR SUBCUT SCH (10:23)
[2022-09-13] MEDS: RISPERIDONE 0.25MG TABLET PO SCH (10:23)
[2022-09-13] MEDS: FAMOTIDINE 20MG TABLET PO SCH (10:23)
[2022-09-13] MEDS: AMLODIPINE 5MG TABLET PO SCH (10:23)
[2022-09-13] MEDS: MONTELUKAST SODIUM 10MG TABLET PO SCH (10:25)
[2022-09-13 12:00] VITALS: BP 129/64
== END 2022-09-13 17:44 | disposition home health service (06) | DRG 140 ==
LOC: ER 17:03 → 6WST 19:44 → EDBEDREQSVC 19:49
PROVIDERS: ADMIT Internal Medicine; ATTEND Internal Medicine
PROC: 5A09357 Assistance with Respiratory Ventilation, Less than 24 Consecutive Hours, Continuous Positive Airway Pressure (ICD-10-PCS; principal; 2022-09-01)
DX: J44.1 Chronic obstructive pulmonary disease with (acute) exacerbation (principal); J96.21 Acute and chronic respiratory failure with hypoxia; J68.0 Bronchitis and pneumonitis due to chemicals, gases, fumes and vapors; I50.30 Unspecified diastolic (congestive) heart failure; I11.0 Hypertensive heart disease with heart failure; E11.42 Type 2 diabetes mellitus with diabetic polyneuropathy; D53.9 Nutritional anemia, unspecified; J96.22 Acute and chronic respiratory failure with hypercapnia; G89.29 Other chronic pain; F14.10 Cocaine abuse, uncomplicated; F17.200 Nicotine dependence, unspecified, uncomplicated; Z20.822 Contact with and (suspected) exposure to COVID-19; Z99.81 Dependence on supplemental oxygen; Z79.51 Long term (current) use of inhaled steroids; Z79.899 Other long term (current) drug therapy; Z79.4 Long term (current) use of insulin; Y92.89 Other specified places as the place of occurrence of the external cause
CPT/HCPCS: 36415; 36600; 71045; 80048; 80053; 80305; 82375; 82550; 82553; 82805; 83880; 84484; 85025; 87426; 90686; 94640; 94660; 97162; 97166; 99291; C1893; C9803; J1650; J2920; J2930

== ENCOUNTER 2022-09-14 07:37 | Inpatient (IN) | payer MEDICARE, OTHER ==
[~2022-09-14] VITALS: Ht 320 cm; Wt 54.0 kg
[~2022-09-14 07:37] MED LIST changes: -ALBU6.7H3 INH; -AMLO5TAB88 MT; +AMLO5TAB88 PO; -FAMO20TA8 MT; +FAMO20TA8 PO; -FLUT1DIS3 INH; -GABA-533 MT; +GABA-533 PO; -METF-414 MT; -MONT10TA21 MT; +MONT10TA21 PO; -NEOM10DR11 LEFT EAR; -P20 MT
[2022-09-14] MEDS ORDERED: ASPIRIN 81MG TABLET PO ONE (08:00)
[2022-09-14 09:13] LABS: HEMATOCRIT. 42.4 % (42.0-52.0); HEMOGLOBIN. 13.9 g/dL (14.0-18.0); MEAN CORPUSCULAR HEMOGLOBIN 32.3 pg (28.0-32.0); MEAN CORPUSCULAR VOLUME 98.8 fL (80.0-94.0); MEAN PLATELET VOLUME 8.6 fl (7.4-10.4); PLATELET 188 x1000/uL (130-400); RED BLOOD CELL COUNT 4.29 mill/uL (4.7-6.1)
[2022-09-14 09:21] LABS: CHLORIDE 90 mEq/L (98-107)
[2022-09-14] MEDS: NITROGLYCERIN 0.4MG TABLET SL SL PRN ×3 (09:27→17:59)
[2022-09-14 09:41] LABS: ETHANOL BLOOD < 10 mg/dL
[2022-09-14 09:53] LABS: PLATELET ESTIMATE NORMAL
[2022-09-14] MEDS ORDERED: ENOXAPARIN 80MG/0.8ML SYR SUBCUT ONE (13:00)
[2022-09-14 16:00] VITALS: BP 122/60
[2022-09-14] MEDS ORDERED: ONDANSETRON HCL 4MG/2ML INJ IV PRN (17:45)
[2022-09-14 18:00] VITALS: BP 122/60
[2022-09-14] MEDS: METHYLPREDNISOLONE SOD SUCC 40 MG/ML VIAL IV SCH (18:38)
[2022-09-14] MEDS ORDERED: NALOXONE HCL 0.4MG/ML VIAL IV PRN (18:45)
[2022-09-14] MEDS: HYDROCODONE/ACETAMINOPHEN 10/325MG TABLET PO PRN (19:43)
[2022-09-14 20:00] VITALS: BP 157/71
[2022-09-14] MEDS: FAMOTIDINE 20MG TABLET PO SCH (20:55)
[2022-09-15] VITALS: BP 103/66
[2022-09-15] MEDS: METHYLPREDNISOLONE SOD SUCC 40 MG/ML VIAL IV SCH ×2 (02:07→10:23)
[2022-09-15] MEDS: HYDROCODONE/ACETAMINOPHEN 10/325MG TABLET PO PRN ×3 (02:43→18:04)
[2022-09-15 04:00] VITALS: BP 134/77
[2022-09-15] MEDS: IPRATROPIUM/ALBUTEROL 0.5-3(2.5)MG/3ML NEB HHN SCH ×7 (07:56→23:31)
[2022-09-15 08:15] VITALS: BP 146/76
[2022-09-15] MEDS: PREDNISONE 20MG TABLET PO SCH (11:55)
[2022-09-15 12:30] VITALS: BP 118/62
[2022-09-15 12:34] LABS: HEMATOCRIT. 38.8 % (42.0-52.0); HEMOGLOBIN. 12.6 g/dL (14.0-18.0); MEAN CORPUSCULAR HEMOGLOBIN 32.4 pg (28.0-32.0); MEAN CORPUSCULAR VOLUME 99.8 fL (80.0-94.0); MEAN PLATELET VOLUME 9.2 fl (7.4-10.4); PLATELET 155 x1000/uL (130-400); RED BLOOD CELL COUNT 3.89 mill/uL (4.7-6.1); RED CELL DISTRIBUTION WIDTH 14.6 % (11.6-14.6)
[2022-09-15 13:23] LABS: CHLORIDE 93 mEq/L (98-107)
[2022-09-15] MEDS ORDERED: KETOROLAC 15MG/ML VIAL IV PRN (19:30)
[2022-09-15 20:00] VITALS: BP 136/67
[2022-09-15] MEDS: FAMOTIDINE 20MG TABLET PO SCH (21:19)
[2022-09-16] VITALS: BP 125/63
[2022-09-16 04:00] VITALS: BP 131/71
[2022-09-16] MEDS: HYDROCODONE/ACETAMINOPHEN 10/325MG TABLET PO PRN ×3 (05:20→17:30)
[2022-09-16 08:00] VITALS: BP 128/71
[2022-09-16] MEDS: PREDNISONE 20MG TABLET PO SCH (09:27)
[2022-09-16] MEDS: IPRATROPIUM/ALBUTEROL 0.5-3(2.5)MG/3ML NEB HHN SCH ×3 (11:20→22:15)
[2022-09-16 12:08] VITALS: BP 141/83
[2022-09-16 15:27] LABS: PLATELET ESTIMATE NORMAL
[2022-09-16 15:48] VITALS: BP 149/78
[2022-09-16 20:00] VITALS: BP 136/79
[2022-09-16] MEDS: FAMOTIDINE 20MG TABLET PO SCH (20:54)
[2022-09-16] MEDS ORDERED: HYDROCODONE/ACETAMINOPHEN 10/325MG TABLET PO PRN (23:00)
[2022-09-17] VITALS: BP 129/69
[2022-09-17] MEDS: IPRATROPIUM/ALBUTEROL 0.5-3(2.5)MG/3ML NEB HHN SCH ×5 (00:08→21:13)
[2022-09-17 04:00] VITALS: BP 141/77
[2022-09-17 08:00] VITALS: BP 144/81
[2022-09-17] MEDS: PREDNISONE 20MG TABLET PO SCH (09:35)
[2022-09-17 12:00] VITALS: BP 138/78
[2022-09-17 16:00] VITALS: BP 124/61
[2022-09-17 20:00] VITALS: BP 103/60
[2022-09-17] MEDS: FAMOTIDINE 20MG TABLET PO SCH (21:02)
[2022-09-18] VITALS: BP 157/81
[2022-09-18] MEDS: IPRATROPIUM/ALBUTEROL 0.5-3(2.5)MG/3ML NEB HHN SCH ×6 (00:38→21:34)
[2022-09-18] MEDS: TRAMADOL 50MG TABLET PO PRN ×3 (00:48→21:00)
[2022-09-18 04:02] VITALS: BP 120/72
[2022-09-18 08:00] VITALS: BP 119/67
[2022-09-18] MEDS: PREDNISONE 20MG TABLET PO SCH (08:28)
[2022-09-18 12:00] VITALS: BP 143/86
[2022-09-18 16:00] VITALS: BP 117/76
[2022-09-18 20:00] VITALS: BP 131/63
[2022-09-18] MEDS ORDERED: GUAIFENESIN-DM 200MG-20MG/10ML UDC PO PRN (20:00)
[2022-09-18] MEDS: FAMOTIDINE 20MG TABLET PO SCH (20:59)
[2022-09-19] VITALS (7 sets, daily range): BP systolic 126–148; BP diastolic 52–85
[2022-09-19] MEDS: IPRATROPIUM/ALBUTEROL 0.5-3(2.5)MG/3ML NEB HHN SCH ×7 (01:38→21:59)
[2022-09-19] MEDS: PREDNISONE 20MG TABLET PO SCH (08:56)
[2022-09-19] MEDS: TRAMADOL 50MG TABLET PO PRN ×2 (08:57→19:04)
[2022-09-19] MEDS: FAMOTIDINE 20MG TABLET PO SCH (20:33)
[2022-09-20] VITALS: BP 132/56
[2022-09-20] MEDS: IPRATROPIUM/ALBUTEROL 0.5-3(2.5)MG/3ML NEB HHN SCH ×6 (00:20→21:27)
[2022-09-20 04:00] VITALS: BP 139/62
[2022-09-20 07:56] VITALS: BP 121/67
[2022-09-20] MEDS: PREDNISONE 20MG TABLET PO SCH ×2 (09:00→20:47)
[2022-09-20] MEDS: TRAMADOL 50MG TABLET PO PRN ×3 (09:01→23:53)
[2022-09-20] MEDS ORDERED: NALOXONE HCL 0.4MG/ML VIAL IV PRN (11:30)
[2022-09-20 12:00] VITALS: BP 119/72
[2022-09-20 16:00] VITALS: BP 112/82
[2022-09-20 20:00] VITALS: BP 124/73
[2022-09-20] MEDS: FAMOTIDINE 20MG TABLET PO SCH (20:47)
[2022-09-21] VITALS: BP 120/70
[2022-09-21] MEDS: IPRATROPIUM/ALBUTEROL 0.5-3(2.5)MG/3ML NEB HHN SCH ×4 (01:08→11:51)
[2022-09-21 08:00] VITALS: BP 142/81
[2022-09-21 11:45] VITALS: BP 142/81
[2022-09-21 12:00] VITALS: BP 129/78
== END 2022-09-21 13:39 | disposition home health service (06) | DRG 145 ==
LOC: ER 07:37 → EDBEDREQ 14:06 → 6WST 14:08 → 6EST 09-20 10:40
PROVIDERS: ADMIT Internal Medicine; ATTEND Internal Medicine
DX: J68.0 Bronchitis and pneumonitis due to chemicals, gases, fumes and vapors (principal); E44.1 Mild protein-calorie malnutrition; I11.0 Hypertensive heart disease with heart failure; I50.9 Heart failure, unspecified; E87.1 Hypo-osmolality and hyponatremia; J44.1 Chronic obstructive pulmonary disease with (acute) exacerbation; E11.9 Type 2 diabetes mellitus without complications; F14.90 Cocaine use, unspecified, uncomplicated; D72.829 Elevated white blood cell count, unspecified; F17.210 Nicotine dependence, cigarettes, uncomplicated; Z88.8 Allergy status to other drugs, medicaments and biological substances; Z68.1 Body mass index [BMI] 19.9 or less, adult
CPT/HCPCS: 36415; 71045; 80048; 80053; 80320; 82962; 83880; 84484; 85025; 93005; 94640; 99291; J2920; J7512; G0480

== ENCOUNTER 2022-09-21 20:29 | Inpatient (IN) | payer MEDICARE, MEDICAID ==
[~2022-09-21] VITALS: Ht 175.3 cm; Wt 77.8 kg
[2022-09-21 23:07] LABS: HEMATOCRIT. 38.3 % (42.0-52.0); HEMOGLOBIN. 12.6 g/dL (14.0-18.0); MEAN CORPUSCULAR HEMOGLOBIN 32.8 pg (28.0-32.0); MEAN CORPUSCULAR VOLUME 99.6 fL (80.0-94.0); MEAN PLATELET VOLUME 8.1 fl (7.4-10.4); PLATELET 310 x1000/uL (130-400); RED BLOOD CELL COUNT 3.84 mill/uL (4.7-6.1); RED CELL DISTRIBUTION WIDTH 14.5 % (11.6-14.6)
[2022-09-21 23:10] LABS: CHLORIDE 98 mEq/L (98-107)
[2022-09-21 23:33] LABS: PLATELET ESTIMATE NORMAL
[2022-09-21] MEDS ORDERED: ALBUTEROL (0.083%) 2.5MG/3ML NEB HHN STA (23:48)
[2022-09-21] MEDS ORDERED: IPRATROPIUM BROMIDE (0.02%) 0.5MG/2.5ML NEB HHN STA (23:48)
[2022-09-22] MEDS ORDERED: PREDNISONE 20MG TABLET PO NR
[2022-09-22] MEDS ORDERED: ALBUTEROL (0.083%) 2.5MG/3ML NEB HHN NR (04:45)
[2022-09-22] MEDS ORDERED: IPRATROPIUM BROMIDE (0.02%) 0.5MG/2.5ML NEB HHN NR (04:45)
[2022-09-22 08:47] VITALS: BP 118/67
[2022-09-22] MEDS: FUROSEMIDE 40MG/4ML VIAL IVP SCH (09:15)
[2022-09-22 09:36] VITALS: BP 118/67
[2022-09-22 12:00] VITALS: BP 117/56
[2022-09-22] MEDS: IPRATROPIUM/ALBUTEROL 0.5-3(2.5)MG/3ML NEB HHN SCH ×3 (13:10→20:57)
[2022-09-22 16:00] VITALS: BP 115/72
[2022-09-22] MEDS: PREDNISONE 20MG TABLET PO SCH (17:00)
[2022-09-22 18:47] LABS: *AMPHETAMINES SCREEN URINE NEGATIVE (NEGATIVE); *BARBITURATES SCREEN URINE NEGATIVE (NEGATIVE); *BENZODIAZEPINES SCREEN URINE NEGATIVE (NEGATIVE); *COCAINE SCREEN URINE NEGATIVE (NEGATIVE); CANNABINOID URINE SCREEN NEGATIVE (NEGATIVE); METHADONE URINE SCREEN NEGATIVE (NEGATIVE); OPIATES URINE SCREEN NEGATIVE (NEGATIVE); PHENCYCLIDINE URINE SCREEN NEGATIVE (NEGATIVE)
[2022-09-22 20:20] VITALS: BP 138/76
[2022-09-22] MEDS: HYDROCODONE/ACETAMINOPHEN 10/325MG TABLET PO PRN (20:49)
[2022-09-22] MEDS ORDERED: NALOXONE HCL 0.4MG/ML VIAL IV PRN (21:30)
[2022-09-22 23:45] VITALS: BP 122/60
[2022-09-23 00:06] LABS: HEMOGLOBIN. 11.2 g/dL (14.0-18.0); MEAN CORPUSCULAR HEMOGLOBIN 32.8 pg (28.0-32.0); MEAN CORPUSCULAR VOLUME 99.5 fL (80.0-94.0); MEAN PLATELET VOLUME 8.3 fl (7.4-10.4); PLATELET 306 x1000/uL (130-400); RED BLOOD CELL COUNT 3.41 mill/uL (4.7-6.1); RED CELL DISTRIBUTION WIDTH 14.3 % (11.6-14.6)
[2022-09-23] MEDS: IPRATROPIUM/ALBUTEROL 0.5-3(2.5)MG/3ML NEB HHN SCH ×6 (00:10→20:17)
[2022-09-23 01:03] LABS: CHLORIDE 94 mEq/L (98-107)
[2022-09-23] MEDS: HYDROCODONE/ACETAMINOPHEN 10/325MG TABLET PO PRN ×2 (03:05→18:23)
[2022-09-23 04:00] VITALS: BP 114/63
[2022-09-23 05:01] LABS: PLATELET ESTIMATE NORMAL
[2022-09-23 08:00] VITALS: BP 150/72
[2022-09-23] MEDS: PREDNISONE 20MG TABLET PO SCH (08:46)
[2022-09-23] MEDS: SPIRONOLACTONE 25MG TABLET PO SCH (08:47)
[2022-09-23] MEDS: FUROSEMIDE 40MG/4ML VIAL IVP SCH (08:47)
[2022-09-23] MEDS ORDERED: DEXTROSE 50% WATER 50ML SYRINGE IV PRN (09:45)
[2022-09-23 12:00] VITALS: BP 116/62
[2022-09-23] MEDS: BLOOD SUGAR DIAGNOSTIC STRIP TEST SCH ×3 (12:40→21:22)
[2022-09-23] MEDS: INSULIN LISPRO 100 UNITS/ML SUBCUT SCH ×3 (13:10→21:25)
[2022-09-23 16:00] VITALS: BP 124/67
[2022-09-23 20:00] VITALS: BP 128/65
[2022-09-24] VITALS (7 sets, daily range): BP systolic 130–150; BP diastolic 71–84
[2022-09-24] MEDS: IPRATROPIUM/ALBUTEROL 0.5-3(2.5)MG/3ML NEB HHN SCH ×7 (00:15→20:49)
[2022-09-24] MEDS: HYDROCODONE/ACETAMINOPHEN 10/325MG TABLET PO PRN ×2 (00:26→20:05)
[2022-09-24] MEDS: BLOOD SUGAR DIAGNOSTIC STRIP TEST SCH ×4 (07:40→20:13)
[2022-09-24] MEDS: INSULIN LISPRO 100 UNITS/ML SUBCUT SCH ×4 (07:44→20:13)
[2022-09-24] MEDS: FUROSEMIDE 40MG TABLET PO SCH (08:26)
[2022-09-24] MEDS: PREDNISONE 20MG TABLET PO SCH (08:26)
[2022-09-24] MEDS: SPIRONOLACTONE 25MG TABLET PO SCH (08:26)
[2022-09-25] VITALS: BP 122/73
[2022-09-25] MEDS: IPRATROPIUM/ALBUTEROL 0.5-3(2.5)MG/3ML NEB HHN SCH ×6 (00:20→20:04)
[2022-09-25] MEDS: HYDROCODONE/ACETAMINOPHEN 10/325MG TABLET PO PRN ×3 (02:30→17:11)
[2022-09-25 04:00] VITALS: BP 137/71
[2022-09-25] MEDS: BLOOD SUGAR DIAGNOSTIC STRIP TEST SCH ×4 (07:40→20:33)
[2022-09-25 08:00] VITALS: BP 155/69
[2022-09-25] MEDS: FUROSEMIDE 40MG TABLET PO SCH (09:50)
[2022-09-25] MEDS: SPIRONOLACTONE 25MG TABLET PO SCH (09:50)
[2022-09-25] MEDS: PREDNISONE 20MG TABLET PO SCH (09:50)
[2022-09-25] MEDS: INSULIN LISPRO 100 UNITS/ML SUBCUT SCH ×4 (10:12→20:33)
[2022-09-25 12:00] VITALS: BP 138/65
[2022-09-25 12:41] LABS: BG BASE EXCESS 8.9 mmol/L (-2.0-2.0); BG CARBOXYHEMOGLOBIN 0.5 % (0.5-1.5); BG DEOXYHEMOGLOBIN 18.4 % (0.0-5.0); BG HCO3 ACT 35.3 mmol/L (22.0-26.0); BG OXYGEN SATURATION 81.5 % (92.0-98.5); BG OXYHEMOGLOBIN 81.1 % (94.0-97.0); BG PCO2 56.2 mmHg (35.0-45.0); BG PH 7.416 (7.350-7.450); BG PO2 42.6 mmHg (75.0-100.0); BG SAMPLE SITE RIGHT BRACHIAL; BG VENT MODE ROOM AIR
[2022-09-25 16:00] VITALS: BP 131/62
[2022-09-25] MEDS ORDERED: GUAIFENESIN 200MG/10ML SUGAR FREE UDC PO NR (17:30)
[2022-09-25 20:00] VITALS: BP 133/75
[2022-09-25] MEDS ORDERED: GUAIFENESIN/CODEINE 200-20MG/10ML UDC PO PRN (20:30)
[2022-09-26] VITALS: BP 128/72
[2022-09-26] MEDS: HYDROCODONE/ACETAMINOPHEN 10/325MG TABLET PO PRN ×2 (00:23→09:01)
[2022-09-26 04:00] VITALS: BP 119/74
[2022-09-26] MEDS: IPRATROPIUM/ALBUTEROL 0.5-3(2.5)MG/3ML NEB HHN SCH ×2 (05:25→09:09)
[2022-09-26] MEDS: BLOOD SUGAR DIAGNOSTIC STRIP TEST SCH (06:42)
[2022-09-26] MEDS: INSULIN LISPRO 100 UNITS/ML SUBCUT SCH (06:42)
[2022-09-26 08:00] VITALS: BP 125/79
[2022-09-26] MEDS: SPIRONOLACTONE 25MG TABLET PO SCH (09:00)
[2022-09-26] MEDS ORDERED: PREDNISONE 10MG TABLET PO SCH (09:00)
[2022-09-26] MEDS: FUROSEMIDE 40MG TABLET PO SCH (09:00)
[2022-09-26 09:01] VITALS: BP 125/79
== END 2022-09-26 14:33 | disposition home or self-care (01) | DRG 140 ==
LOC: ER 20:29 → 7WST 09-22 01:48
PROVIDERS: ADMIT Family Medicine; ATTEND Family Medicine
DX: J44.1 Chronic obstructive pulmonary disease with (acute) exacerbation (principal); J96.21 Acute and chronic respiratory failure with hypoxia; I50.33 Acute on chronic diastolic (congestive) heart failure; E11.40 Type 2 diabetes mellitus with diabetic neuropathy, unspecified; F14.90 Cocaine use, unspecified, uncomplicated; F17.210 Nicotine dependence, cigarettes, uncomplicated; I11.0 Hypertensive heart disease with heart failure; G89.29 Other chronic pain; Z20.822 Contact with and (suspected) exposure to COVID-19; Z88.8 Allergy status to other drugs, medicaments and biological substances; Z91.14 Patient's other noncompliance with medication regimen
CPT/HCPCS: 36415; 36600; 71045; 80053; 80305; 82375; 82805; 82950; 82962; 83036; 83880; 84484; 85025; 87426; 93005; 94640; 99285; J1815; J1940; J7512

== ENCOUNTER 2022-09-27 20:39 | Inpatient (IN) | payer MEDICARE, MEDICAID ==
[~2022-09-27] VITALS: Ht 172.7 cm; Wt 63.0 kg
[2022-09-27] MEDS ORDERED: METHYLPREDNISOLONE SOD SUCC 125 MG/2 ML VIAL IV ONE (22:15)
[2022-09-27] MEDS ORDERED: IPRATROPIUM/ALBUTEROL 0.5-3(2.5)MG/3ML NEB HHN ONE (22:15)
[2022-09-27 23:30] LABS: HEMATOCRIT. 37.2 % (42.0-52.0); HEMOGLOBIN. 12.3 g/dL (14.0-18.0); MEAN CORPUSCULAR HEMOGLOBIN 32.3 pg (28.0-32.0); MEAN CORPUSCULAR VOLUME 97.7 fL (80.0-94.0); MEAN PLATELET VOLUME 7.9 fl (7.4-10.4); PLATELET 458 x1000/uL (130-400); RED BLOOD CELL COUNT 3.81 mill/uL (4.7-6.1); RED CELL DISTRIBUTION WIDTH 14.1 % (11.6-14.6)
[2022-09-27 23:59] LABS: BG BASE EXCESS 9.1 mmol/L (-2.0-2.0); BG CARBOXYHEMOGLOBIN 2.7 % (0.5-1.5); BG FRACTION INSPIRED OXYGEN 28; BG HCO3 ACT 35.7 mmol/L (22.0-26.0); BG METHEMOGLOBIN 0.2 % (0.0-1.5); BG OXYGEN SATURATION 93.8 % (92.0-98.5); BG OXYHEMOGLOBIN 91.1 % (94.0-97.0); BG PCO2 57.8 mmHg (35.0-45.0); BG PH 7.409 (7.350-7.450); BG PO2 68.3 mmHg (75.0-100.0); BG SAMPLE SITE RIGHT RADIAL; BG TOTAL HEMOGLOBIN 13.5 g/dL (12.0-18.0); BG VENT MODE NASAL CANNULA
[2022-09-28 00:14] LABS: CHLORIDE 96 mEq/L (98-107)
[2022-09-28] MEDS ORDERED: CEFTRIAXONE 1 G PREMIX 50 ML IV NR (00:45)
[2022-09-28] MEDS ORDERED: NACL IV NR (00:45)
[2022-09-28] MEDS ORDERED: CALCIUM GLUCONATE IV NR (00:45)
[2022-09-28 06:44] LABS: PLATELET ESTIMATE INCREASED
[2022-09-28] MEDS ORDERED: GUAIFENESIN 200MG/10ML SUGAR FREE UDC PO PRN (07:00)
[2022-09-28] MEDS ORDERED: NITROGLYCERIN 0.4MG TABLET SL SL PRN (07:00)
[2022-09-28] MEDS ORDERED: ONDANSETRON HCL 4MG/2ML INJ IV PRN (07:00)
[2022-09-28] MEDS ORDERED: DOCUSATE SODIUM 100MG CAPSULE PO PRN (07:00)
[2022-09-28] MEDS ORDERED: MAGNESIUM/ALUMINUM HYDROXIDE/SIMETHICONE 30ML UDC PO PRN (07:00)
[2022-09-28] MEDS ORDERED: CLONIDINE 0.1MG TABLET PO PRN (07:00)
[2022-09-28] MEDS ORDERED: IPRATROPIUM/ALBUTEROL 0.5-3(2.5)MG/3ML NEB NEB PRN (07:00)
[2022-09-28] MEDS ORDERED: ACETAMINOPHEN 325MG TABLET PO PRN (07:00)
[2022-09-28] MEDS: METHYLPREDNISOLONE SOD SUCC 125 MG/2 ML VIAL IV SCH ×3 (08:24→21:05)
[2022-09-28] MEDS: ENOXAPARIN 40MG/0.4ML SYR SUBCUT SCH (08:24)
[2022-09-28] MEDS: LEVOFLOXACIN 750MG PREMIX 150 ML IV SCH ×2 (08:25→20:42)
[2022-09-28] MEDS: AMLODIPINE 10MG TABLET PO SCH (09:00)
[2022-09-28] MEDS: FAMOTIDINE 20MG TABLET PO SCH ×2 (09:00→21:06)
[2022-09-28] MEDS: ASPIRIN 325MG EC TABLET PO SCH (09:00)
[2022-09-28] MEDS: GUAIFENESIN/DM 600MG/30MG ER TAB 12HR PO SCH ×2 (09:00→21:06)
[2022-09-28 10:40] VITALS: BP_SYST 132; BP_SYST 133; BP_DIAS 78; BP_DIAS 85
[2022-09-28] MEDS: IPRATROPIUM/ALBUTEROL 0.5-3(2.5)MG/3ML NEB HHN SCH ×3 (11:03→20:28)
[2022-09-28] MEDS: ACETAMINOPHEN 325MG TABLET PO PRN (19:12)
[2022-09-28 19:25] LABS: CREATINE KINASE MB FRACTION 4.1 ng/mL (0.5-3.6); T4 FREE 1.11 ng/dL (0.76-1.46)
[2022-09-28 20:00] VITALS: BP 157/77
[2022-09-28 20:28] LABS: TOTAL IRON BINDING CAPACITY 244 ug/dL (250-450)
[2022-09-28] MEDS: ZOLPIDEM TARTRATE 5MG TABLET PO PRN (21:05)
[2022-09-28] MEDS: KETOROLAC 15MG/ML VIAL IV PRN (22:48)
[2022-09-29] MEDS: IPRATROPIUM/ALBUTEROL 0.5-3(2.5)MG/3ML NEB HHN SCH ×6 (00:14→21:18)
[2022-09-29 04:00] VITALS: BP 147/88
[2022-09-29] MEDS: METHYLPREDNISOLONE SOD SUCC 125 MG/2 ML VIAL IV SCH (05:02)
[2022-09-29] MEDS: KETOROLAC 15MG/ML VIAL IV PRN (05:02)
[2022-09-29 08:00] VITALS: BP 130/66
[2022-09-29] MEDS: ENOXAPARIN 40MG/0.4ML SYR SUBCUT SCH ×2 (08:00→11:05)
[2022-09-29] MEDS: GUAIFENESIN/DM 600MG/30MG ER TAB 12HR PO SCH ×2 (10:16→20:59)
[2022-09-29] MEDS: ASPIRIN 325MG EC TABLET PO SCH (10:17)
[2022-09-29] MEDS: FAMOTIDINE 20MG TABLET PO SCH ×2 (10:17→20:59)
[2022-09-29] MEDS: AMLODIPINE 10MG TABLET PO SCH (10:17)
[2022-09-29] MEDS: ACETAMINOPHEN 325MG TABLET PO PRN (10:29)
[2022-09-29 12:00] VITALS: BP 135/63
[2022-09-29] MEDS ORDERED: HYDROCODONE/ACETAMINOPHEN 10/325MG TABLET PO PRN ×2 (16:00→16:30)
[2022-09-29] MEDS ORDERED: NALOXONE HCL 0.4MG/ML VIAL IV PRN (16:30)
[2022-09-29] MEDS: LEVOFLOXACIN 750MG PREMIX 150 ML IV SCH (16:56)
[2022-09-29] MEDS: METHYLPREDNISOLONE SOD SUCC 40 MG/ML VIAL IV SCH ×2 (16:57→22:06)
[2022-09-29 18:00] VITALS: BP 130/56
[2022-09-29 20:31] LABS: HEMATOCRIT. 33.3 % (42.0-52.0); MEAN CORPUSCULAR HEMOGLOBIN 32.2 pg (28.0-32.0); MEAN CORPUSCULAR VOLUME 97.6 fL (80.0-94.0); MEAN PLATELET VOLUME 8.2 fl (7.4-10.4); PLATELET 400 x1000/uL (130-400); RED BLOOD CELL COUNT 3.41 mill/uL (4.7-6.1)
[2022-09-29 20:40] LABS: CHLORIDE 97 mEq/L (98-107)
[2022-09-29 20:51] LABS: CREATINE KINASE 35 IU/L (39-308); CREATINE KINASE MB FRACTION 3.8 ng/mL (0.5-3.6); PHOSPHORUS 1.6 mg/dL (2.5-4.9)
[2022-09-29] MEDS: HYDROCODONE/ACETAMINOPHEN 10/325MG TABLET PO PRN (20:59)
[2022-09-29 21:00] VITALS: BP 135/73
[2022-09-29] MEDS: BUDESONIDE 0.5MG/2ML NEB HHN SCH (21:18)
[2022-09-29] MEDS: ZOLPIDEM TARTRATE 5MG TABLET PO PRN (22:06)
[2022-09-29 22:38] LABS: *AMPHETAMINES SCREEN URINE NEGATIVE (NEGATIVE); *BARBITURATES SCREEN URINE NEGATIVE (NEGATIVE); *BENZODIAZEPINES SCREEN URINE NEGATIVE (NEGATIVE); *COCAINE SCREEN URINE PRESUMTIVE POSITIVE (NEGATIVE); CANNABINOID URINE SCREEN NEGATIVE (NEGATIVE); METHADONE URINE SCREEN NEGATIVE (NEGATIVE); OPIATES URINE SCREEN PRESUMTIVE POSITIVE (NEGATIVE); PHENCYCLIDINE URINE SCREEN NEGATIVE (NEGATIVE)
[2022-09-29 23:33] LABS: PLATELET ESTIMATE NORMAL
[2022-09-30] VITALS: BP 129/87
[2022-09-30] MEDS: IPRATROPIUM/ALBUTEROL 0.5-3(2.5)MG/3ML NEB HHN SCH ×5 (01:21→21:14)
[2022-09-30] MEDS: HYDROCODONE/ACETAMINOPHEN 10/325MG TABLET PO PRN (02:34)
[2022-09-30 04:00] VITALS: BP 131/75
[2022-09-30] MEDS: METHYLPREDNISOLONE SOD SUCC 40 MG/ML VIAL IV SCH ×3 (06:45→21:24)
[2022-09-30] MEDS ORDERED: LEVOFLOXACIN 750MG PREMIX 150 ML IV SCH (07:00)
[2022-09-30 08:00] VITALS: BP 126/77
[2022-09-30] MEDS: ASPIRIN 325MG EC TABLET PO SCH (09:58)
[2022-09-30] MEDS: AMLODIPINE 10MG TABLET PO SCH (09:58)
[2022-09-30] MEDS: FAMOTIDINE 20MG TABLET PO SCH ×2 (09:58→21:23)
[2022-09-30] MEDS: ENOXAPARIN 40MG/0.4ML SYR SUBCUT SCH (09:58)
[2022-09-30] MEDS: GUAIFENESIN/DM 600MG/30MG ER TAB 12HR PO SCH ×2 (09:59→21:24)
[2022-09-30] MEDS: BUDESONIDE 0.5MG/2ML NEB HHN SCH ×2 (11:08→21:14)
[2022-09-30 12:00] VITALS: BP 136/67
[2022-09-30] MEDS: LEVOFLOXACIN 750MG PREMIX 150 ML IV SCH (13:34)
[2022-09-30] MEDS: ACETAMINOPHEN 325MG TABLET PO PRN ×2 (13:42→21:24)
[2022-09-30 16:00] VITALS: BP 139/70
[2022-09-30 20:00] VITALS: BP 155/72
[2022-09-30] MEDS: ZOLPIDEM TARTRATE 5MG TABLET PO PRN (21:23)
[2022-09-30] MEDS: GABAPENTIN 100MG CAPSULE PO SCH (21:23)
[2022-10-01] VITALS: BP 107/69
[2022-10-01] MEDS: IPRATROPIUM/ALBUTEROL 0.5-3(2.5)MG/3ML NEB HHN SCH ×6 (00:17→20:38)
[2022-10-01 04:00] VITALS: BP 121/65
[2022-10-01] MEDS: METHYLPREDNISOLONE SOD SUCC 40 MG/ML VIAL IV SCH ×4 (05:23→21:23)
[2022-10-01] MEDS: GABAPENTIN 100MG CAPSULE PO SCH ×3 (05:24→20:55)
[2022-10-01 08:00] VITALS: BP 149/83
[2022-10-01] MEDS: BUDESONIDE 0.5MG/2ML NEB HHN SCH ×2 (08:12→20:39)
[2022-10-01] MEDS: ASPIRIN 325MG EC TABLET PO SCH (08:43)
[2022-10-01] MEDS: GUAIFENESIN/DM 600MG/30MG ER TAB 12HR PO SCH ×2 (08:43→20:55)
[2022-10-01] MEDS: AMLODIPINE 10MG TABLET PO SCH (08:43)
[2022-10-01] MEDS: ENOXAPARIN 40MG/0.4ML SYR SUBCUT SCH (08:43)
[2022-10-01] MEDS: FAMOTIDINE 20MG TABLET PO SCH ×2 (08:43→20:55)
[2022-10-01] MEDS: ACETAMINOPHEN 325MG TABLET PO PRN ×2 (10:25→17:24)
[2022-10-01 12:00] VITALS: BP 130/81
[2022-10-01] MEDS: LEVOFLOXACIN 750MG PREMIX 150 ML IV SCH (13:00)
[2022-10-01 16:00] VITALS: BP 113/65
[2022-10-01] MEDS: LEVOFLOXACIN 250MG TABLET PO SCH (17:22)
[2022-10-01 20:00] VITALS: BP 131/84
[2022-10-02] VITALS (7 sets, daily range): BP systolic 95–142; BP diastolic 55–80
[2022-10-02] MEDS: IPRATROPIUM/ALBUTEROL 0.5-3(2.5)MG/3ML NEB HHN SCH ×6 (00:23→21:13)
[2022-10-02] MEDS: METHYLPREDNISOLONE SOD SUCC 40 MG/ML VIAL IV SCH ×3 (06:00→14:00)
[2022-10-02] MEDS: GABAPENTIN 100MG CAPSULE PO SCH ×3 (06:05→21:01)
[2022-10-02] MEDS: GUAIFENESIN/DM 600MG/30MG ER TAB 12HR PO SCH ×2 (09:13→20:58)
[2022-10-02] MEDS: ACETAMINOPHEN 325MG TABLET PO PRN ×2 (09:13→16:59)
[2022-10-02] MEDS: ASPIRIN 325MG EC TABLET PO SCH (09:13)
[2022-10-02] MEDS: AMLODIPINE 10MG TABLET PO SCH (09:14)
[2022-10-02] MEDS: FAMOTIDINE 20MG TABLET PO SCH ×2 (09:14→20:58)
[2022-10-02] MEDS: ENOXAPARIN 40MG/0.4ML SYR SUBCUT SCH (09:14)
[2022-10-02] MEDS: BUDESONIDE 0.5MG/2ML NEB HHN SCH (09:36)
[2022-10-02] MEDS ORDERED: PREDNISONE 20MG TABLET PO SCH (16:15)
[2022-10-02] MEDS: LEVOFLOXACIN 250MG TABLET PO SCH (16:59)
[2022-10-03] VITALS: BP 112/67
[2022-10-03] MEDS: IPRATROPIUM/ALBUTEROL 0.5-3(2.5)MG/3ML NEB HHN SCH (00:34)
== END 2022-10-03 01:40 | DRG 720 ==
LOC: ER 20:39 → 7EST 09-28 03:06 → SUPCPDRO 09-28 06:54
PROVIDERS: ADMIT Internal Medicine; ATTEND Internal Medicine
DX: A41.9 Sepsis, unspecified organism (principal); J96.21 Acute and chronic respiratory failure with hypoxia; E43 Unspecified severe protein-calorie malnutrition; I50.30 Unspecified diastolic (congestive) heart failure; J18.9 Pneumonia, unspecified organism; E87.1 Hypo-osmolality and hyponatremia; E11.40 Type 2 diabetes mellitus with diabetic neuropathy, unspecified; I11.0 Hypertensive heart disease with heart failure; J44.0 Chronic obstructive pulmonary disease with (acute) lower respiratory infection; J44.1 Chronic obstructive pulmonary disease with (acute) exacerbation; J96.22 Acute and chronic respiratory failure with hypercapnia; E44.0 Moderate protein-calorie malnutrition; F17.210 Nicotine dependence, cigarettes, uncomplicated; Z20.822 Contact with and (suspected) exposure to COVID-19; G89.29 Other chronic pain; F14.10 Cocaine abuse, uncomplicated; Z99.81 Dependence on supplemental oxygen; Z79.899 Other long term (current) drug therapy; Z88.8 Allergy status to other drugs, medicaments and biological substances; Z68.21 Body mass index [BMI] 21.0-21.9, adult
CPT/HCPCS: 36415; 36600; 71045; 80053; 80305; 82375; 82550; 82553; 82607; 82746; 82805; 83036; 83540; 83550; 83735; 83880; 84100; 84439; 84443; 84484; 85025; 87426; 93005; 94640; 97162; 99285; J0610; J0696; J1650; J1885; J1956; J2920; J2930; J7512; J7626

== ENCOUNTER 2022-11-15 11:33 | Emergency (ER) | payer MEDICARE, MEDICAID ==
[~2022-11-15] VITALS: Ht 175.3 cm; Wt 64.0 kg
[2022-11-15 11:34] VITALS: BP 147/96
[2022-11-15] MEDS ORDERED: METHYLPREDNISOLONE SOD SUCC 125 MG/2 ML VIAL IV ONE (12:00)
== END 2022-11-15 12:58 | disposition left against medical advice (07) ==
LOC: ER 11:33 → CANBEDREQ 13:51
DX: J44.1 Chronic obstructive pulmonary disease with (acute) exacerbation (principal); I49.1 Atrial premature depolarization; I11.0 Hypertensive heart disease with heart failure; I50.9 Heart failure, unspecified; E11.9 Type 2 diabetes mellitus without complications; J45.909 Unspecified asthma, uncomplicated; Z79.899 Other long term (current) drug therapy
CPT/HCPCS: 93005; 99283

== ENCOUNTER 2022-11-15 22:42 | Emergency (ER) | payer MEDICARE, MEDICAID ==
[~2022-11-15] VITALS: Ht 172.7 cm; Wt 80.0 kg
[2022-11-15] MEDS ORDERED: IPRATROPIUM BROMIDE (0.02%) 0.5MG/2.5ML NEB HHN STA (23:59)
[2022-11-15] MEDS ORDERED: ALBUTEROL (0.083%) 2.5MG/3ML NEB HHN STA (23:59)
[2022-11-16 16:15] VITALS: BP 120/78
== END 2022-11-16 22:33 ==
LOC: ER 22:42
DX: J44.1 Chronic obstructive pulmonary disease with (acute) exacerbation (principal); R46.89 Other symptoms and signs involving appearance and behavior; Z88.5 Allergy status to narcotic agent
CPT/HCPCS: 93005; 94640; 99285; Z7610; 94644; 99283

== ENCOUNTER 2022-12-16 14:13 | Inpatient (IN) | payer MEDICARE, MEDICAID ==
[~2022-12-16] VITALS: Ht 175.3 cm; Wt 72.1 kg
[2022-12-16] MEDS ORDERED: ALBUTEROL (0.083%) 2.5MG/3ML NEB HHN STA (15:28)
[2022-12-16] MEDS ORDERED: METHYLPREDNISOLONE SOD SUCC 125 MG/2 ML VIAL IV STA (15:28)
[2022-12-16] MEDS ORDERED: IPRATROPIUM BROMIDE (0.02%) 0.5MG/2.5ML NEB HHN STA (15:28)
[2022-12-16 16:29] LABS: BG BASE EXCESS 9.3 mmol/L (-2.0-2.0); BG CARBOXYHEMOGLOBIN 3.3 % (0.5-1.5); BG DEOXYHEMOGLOBIN 1.5 % (0.0-5.0); BG FRACTION INSPIRED OXYGEN 36; BG HCO3 ACT 38.3 mmol/L (22.0-26.0); BG METHEMOGLOBIN 0.1 % (0.0-1.5); BG OXYGEN SATURATION 98.4 % (92.0-98.5); BG OXYHEMOGLOBIN 95.1 % (94.0-97.0); BG PCO2 73.8 mmHg (35.0-45.0); BG PH 7.333 (7.350-7.450); BG PO2 123.6 mmHg (75.0-100.0); BG SAMPLE SITE RIGHT RADIAL; BG TOTAL HEMOGLOBIN 14.3 g/dL (12.0-18.0); BG VENT MODE NASAL CANNULA
[2022-12-16 17:33] LABS: BASOPHILS % 0.2 % (0.0-2.0); EOSINOPHILS % 0.1 % (0.0-5.0); HEMOGLOBIN. 13.5 g/dL (14.0-18.0); LYMPHOCYTES % 2.9 % (20.0-50.0); MEAN CORPUSCULAR HEMOGLOBIN 31.1 pg (28.0-32.0); MEAN CORPUSCULAR VOLUME 96.9 fL (80.0-94.0); MEAN PLATELET VOLUME 7.5 fl (7.4-10.4); MONOCYTES % 1.9 % (2.0-8.0); NEUTROPHILS % 94.9 % (40.0-76.0); PLATELET 374 x1000/uL (130-400); RED BLOOD CELL COUNT 4.34 mill/uL (4.7-6.1); RED CELL DISTRIBUTION WIDTH 14.6 % (11.6-14.6)
[2022-12-16 17:39] LABS: CHLORIDE 100 mEq/L (98-107)
[2022-12-16 17:40] LABS: PROTHROMBIN TIME 11.2 sec (9.6-11.0)
[2022-12-16] MEDS ORDERED: METHYLPREDNISOLONE SOD SUCC 125 MG/2 ML VIAL ONE (19:32)
[2022-12-16 21:08] LABS: CLARITY URINE CLEAR (CLEAR); COLOR URINE YELLOW (YELLOW); KETONES URINE NEGATIVE (NEGATIVE); LEUKOCYTE ESTERASE URINE NEGATIVE (NEGATIVE); NITRITE URINE NEGATIVE (NEGATIVE); OCCULT BLOOD URINE 1+ (NEGATIVE); PH URINE 5.5 (4.5-8.0); PROTEIN URINE 2+ (NEGATIVE); SPECIFIC GRAVITY URINE 1.021 (1.005-1.030)
[2022-12-17] MEDS ORDERED: METHYLPREDNISOLONE SOD SUCC 125 MG/2 ML VIAL IV NR ×2 (01:30→10:15)
[2022-12-17] MEDS ORDERED: ALBUTEROL (0.083%) 2.5MG/3ML NEB HHN ONE (04:30)
[2022-12-17] MEDS ORDERED: IPRATROPIUM BROMIDE (0.02%) 0.5MG/2.5ML NEB HHN ONE (04:30)
[2022-12-17] MEDS ORDERED: IPRATROPIUM BROMIDE (0.02%) 0.5MG/2.5ML NEB HHN SCH (10:00)
[2022-12-17] MEDS ORDERED: IPRATROPIUM BROMIDE (0.02%) 0.5MG/2.5ML NEB HHN PRN (10:15)
[2022-12-17] MEDS ORDERED: ALBUTEROL (0.083%) 2.5MG/3ML NEB HHN PRN (10:15)
[2022-12-17 10:20] VITALS: BP_SYST 126; BP_DIAS 56; BP_DIAS 58
[2022-12-17 12:00] VITALS: BP 115/49
[2022-12-17] MEDS ORDERED: ALBUTEROL (0.083%) 2.5MG/3ML NEB HHN SCH (12:00)
[2022-12-17] MEDS ORDERED: IPRATROPIUM/ALBUTEROL 0.5-3(2.5)MG/3ML NEB HHN SCH (12:00)
[2022-12-17] MEDS: IPRATROPIUM BROMIDE (0.02%) 0.5MG/2.5ML NEB HHN SCH ×2 (12:20→22:23)
[2022-12-17] MEDS: ALBUTEROL (0.083%) 2.5MG/3ML NEB HHN SCH ×2 (12:20→22:23)
[2022-12-17] MEDS ORDERED: GUAIFENESIN/DM 600MG/30MG ER TAB 12HR PO PRN (13:30)
[2022-12-17] MEDS: GUAIFENESIN-DM 200MG-20MG/10ML UDC PO PRN (14:07)
[2022-12-17] MEDS: METHYLPREDNISOLONE SOD SUCC 125 MG/2 ML VIAL IV SCH ×2 (14:08→21:07)
[2022-12-17 14:18] LABS: *AMPHETAMINES SCREEN URINE NEGATIVE (NEGATIVE); *BARBITURATES SCREEN URINE NEGATIVE (NEGATIVE); *BENZODIAZEPINES SCREEN URINE NEGATIVE (NEGATIVE); *COCAINE SCREEN URINE NEGATIVE (NEGATIVE); CANNABINOID URINE SCREEN NEGATIVE (NEGATIVE); METHADONE URINE SCREEN NEGATIVE (NEGATIVE); OPIATES URINE SCREEN PRESUMTIVE POSITIVE (NEGATIVE); PHENCYCLIDINE URINE SCREEN NEGATIVE (NEGATIVE)
[2022-12-17] MEDS: KETOROLAC 15MG/ML VIAL IV PRN (14:43)
[2022-12-17 16:00] VITALS: BP 118/50
[2022-12-17] MEDS ORDERED: PREDNISONE 20MG TABLET PO SCH (17:00)
[2022-12-17] MEDS: GUAIFENESIN/DM 600MG/30MG ER TAB 12HR PO SCH (21:07)
[2022-12-17] MEDS: ZOLPIDEM TARTRATE 5MG TABLET PO PRN (21:07)
[2022-12-17] MEDS: FAMOTIDINE 20MG TABLET PO SCH (21:07)
[2022-12-18] VITALS: BP 108/72
[2022-12-18] MEDS: GUAIFENESIN-DM 200MG-20MG/10ML UDC PO PRN ×4 (01:47→20:47)
[2022-12-18] MEDS: KETOROLAC 15MG/ML VIAL IV PRN ×2 (01:48→20:46)
[2022-12-18] MEDS: ALBUTEROL (0.083%) 2.5MG/3ML NEB HHN SCH ×4 (03:30→20:40)
[2022-12-18] MEDS: IPRATROPIUM BROMIDE (0.02%) 0.5MG/2.5ML NEB HHN SCH ×4 (03:30→20:40)
[2022-12-18 04:00] VITALS: BP 124/70
[2022-12-18] MEDS: METHYLPREDNISOLONE SOD SUCC 125 MG/2 ML VIAL IV SCH ×2 (05:58→13:37)
[2022-12-18 08:08] VITALS: BP 123/66
[2022-12-18] MEDS: ENOXAPARIN 40MG/0.4ML SYR SUBCUT SCH (08:17)
[2022-12-18] MEDS: GUAIFENESIN/DM 600MG/30MG ER TAB 12HR PO SCH ×2 (08:17→20:47)
[2022-12-18 11:43] VITALS: BP 122/63
[2022-12-18 16:14] VITALS: BP 128/48
[2022-12-18] MEDS: PREDNISONE 20MG TABLET PO SCH (17:08)
[2022-12-18 20:00] VITALS: BP 126/49
[2022-12-18] MEDS: ZOLPIDEM TARTRATE 5MG TABLET PO PRN (20:47)
[2022-12-18] MEDS: FAMOTIDINE 20MG TABLET PO SCH (20:47)
[2022-12-19] VITALS: BP 142/54
[2022-12-19] MEDS: GUAIFENESIN-DM 200MG-20MG/10ML UDC PO PRN ×2 (02:09→06:16)
[2022-12-19] MEDS: IPRATROPIUM BROMIDE (0.02%) 0.5MG/2.5ML NEB HHN SCH ×3 (02:20→16:06)
[2022-12-19] MEDS: ALBUTEROL (0.083%) 2.5MG/3ML NEB HHN SCH ×3 (02:20→16:06)
[2022-12-19 04:00] VITALS: BP 132/87
[2022-12-19] MEDS ORDERED: ACETAMINOPHEN 325MG TABLET PO PRN (06:30)
[2022-12-19 08:00] VITALS: BP 139/67
[2022-12-19] MEDS: PREDNISONE 20MG TABLET PO SCH (08:43)
[2022-12-19] MEDS: ENOXAPARIN 40MG/0.4ML SYR SUBCUT SCH (08:43)
[2022-12-19] MEDS: GUAIFENESIN/DM 600MG/30MG ER TAB 12HR PO SCH (08:45)
[2022-12-19 11:45] VITALS: BP 131/74
[2022-12-19 16:00] VITALS: BP 135/63
[2022-12-19 16:07] VITALS: BP 131/74
[2022-12-19] MEDS ORDERED: P20 MT (16:26)
[2022-12-19] MEDS ORDERED: IPRATROPIUM BROMIDE (0.02%) 0.5MG/2.5ML NEB HHN SCH (22:00)
[2022-12-19] MEDS ORDERED: ALBUTEROL (0.083%) 2.5MG/3ML NEB HHN SCH (22:00)
== END 2022-12-19 17:00 | DRG 140 ==
LOC: ER 14:13 → 7WST 17:49
PROVIDERS: ADMIT Internal Medicine; ATTEND Internal Medicine
DX: J44.1 Chronic obstructive pulmonary disease with (acute) exacerbation (principal); J96.21 Acute and chronic respiratory failure with hypoxia; E11.40 Type 2 diabetes mellitus with diabetic neuropathy, unspecified; D72.829 Elevated white blood cell count, unspecified; F14.90 Cocaine use, unspecified, uncomplicated; F17.210 Nicotine dependence, cigarettes, uncomplicated; I50.32 Chronic diastolic (congestive) heart failure; I11.0 Hypertensive heart disease with heart failure; J96.22 Acute and chronic respiratory failure with hypercapnia; Z20.822 Contact with and (suspected) exposure to COVID-19; G89.29 Other chronic pain; Z99.81 Dependence on supplemental oxygen; Z88.8 Allergy status to other drugs, medicaments and biological substances; Z79.899 Other long term (current) drug therapy; Z82.49 Family history of ischemic heart disease and other diseases of the circulatory system
CPT/HCPCS: 36415; 36600; 71045; 80053; 80305; 81003; 82375; 82805; 83880; 84484; 85025; 87426; 87804; 93005; 94640; 94660; 99291; C9803; J1650; J1885; J2930; J7512

== ENCOUNTER 2024-01-17 18:50 | Inpatient (IN) | payer MEDICARE, MEDICAID ==
[~2024-01-17] VITALS: Ht 165.1 cm; Wt 72.6 kg
[~2024-01-17 18:50] MED LIST changes: +ALBU6.7H15 INH; +ATROV INH; +AZIT500T MT; -BENZ100C86 PO; -GABA-533 PO; -HYDR-4134 PO; +HYDR25TA78 PO; -IPRA3AMP9 HHN; -IPRA3AMP9 NEB; +MONT-46 PO; -MONT10TA21 PO; +P20 MT
[2024-01-17] MEDS ORDERED: IPRATROPIUM BROMIDE (0.02%) 0.5MG/2.5ML NEB HHN STA (18:58)
[2024-01-17] MEDS ORDERED: METHYLPREDNISOLONE SOD SUCC 125MG/2ML (ACT-O-VIAL) IV STA (18:58)
[2024-01-17] MEDS ORDERED: ALBUTEROL (0.083%) 2.5MG/3ML NEB HHN SCH ×2 (19:00→22:30)
[2024-01-17] MEDS ORDERED: FUROSEMIDE 40MG/4ML VIAL IV ONE (19:00)
[2024-01-17] MEDS: METHYLPREDNISOLONE SOD SUCC 125MG/2ML (ACT-O-VIAL) IV NR (21:11)
[2024-01-17] MEDS: FUROSEMIDE 40MG/4ML VIAL IV NR (21:11)
[2024-01-17] MEDS: MAGNESIUM 2 G PREMIX 50 ML IV ONE (21:34)
[2024-01-17 22:30] VITALS: PULSE 78; RESP 22; O2SAT 99
[2024-01-17] MEDS ORDERED: IPRATROPIUM BROMIDE (0.02%) 0.5MG/2.5ML NEB HHN NR (22:30)
[2024-01-17 23:00] VITALS: PULSE 86; RESP 24
[2024-01-17 23:02] LABS: BASOPHILS % 0.2 % (0.0-2.0); HEMATOCRIT. 43.3 % (42.0-52.0); HEMOGLOBIN. 14.1 g/dL (14.0-18.0); LYMPHOCYTES % 11.8 % (20.0-50.0); MEAN CORPUSCULAR HEMOGLOBIN 30.7 pg (28.0-32.0); MEAN CORPUSCULAR HGB CONC 32.6 g/dL (31.0-37.0); MEAN CORPUSCULAR VOLUME 94.3 fL (80.0-94.0); MONOCYTES % 4.2 % (2.0-8.0); NEUTROPHILS % 83.8 % (40.0-76.0); PLATELET 270 x1000/uL (130-400); RED BLOOD CELL COUNT 4.59 mill/uL (4.7-6.1); RED CELL DISTRIBUTION WIDTH 14.1 % (11.6-14.6); WHITE BLOOD COUNT 8.3 x1000/uL (4.5-11.0)
[2024-01-17 23:17] LABS: ALANINE AMINOTRANSFERASE 17 IU/L (10-49); ALBUMIN 4.9 g/dL (3.2-4.8); ASPARTATE AMINOTRANSFERASE 22 IU/L (<34); BILIRUBIN TOTAL 0.7 mg/dL (0.1-1.0); CALCIUM 9.5 mg/dL (8.7-10.4); CARBON DIOXIDE 37 mEq/L (21-32); CHLORIDE 101 mEq/L (98-107); CREATININE 0.8 mg/dL (0.6-1.3); GLUCOSE 158 mg/dL (70-105); POTASSIUM 3.8 mEq/L (3.5-5.1); SODIUM 137 mEq/L (136-145); TROPONIN I HIGH SENSITIVITY 39 ng/L (3.0-53); UREA NITROGEN BLOOD 19 mg/dL (9-23)
[2024-01-17 23:30] VITALS: PULSE 78; RESP 20
[2024-01-18] VITALS (8 sets, daily range): BP systolic 144–152; BP diastolic 68–85; PULSE 60–168; RESP 17–20; TEMP 97.7–98.1; O2SAT 99
[2024-01-18] MEDS ORDERED: BUDESONIDE 0.25MG/2ML NEB HHN SCH (02:30)
[2024-01-18] MEDS ORDERED: IPRATROPIUM BROMIDE (0.02%) 0.5MG/2.5ML NEB HHN PRN (02:30)
[2024-01-18] MEDS ORDERED: METHYLPREDNISOLONE SOD SUCC 40MG VIAL IV SCH (06:00)
[2024-01-18] MEDS: IPRATROPIUM/ALBUTEROL 0.5-3(2.5)MG/3ML NEB HHN SCH (08:00)
[2024-01-18] MEDS: ENOXAPARIN 40MG/0.4ML SYR SUBCUT SCH (09:21)
[2024-01-18] MEDS ORDERED: ACETAMINOPHEN 325MG TABLET PO PRN ×2 (12:00)
[2024-01-18] MEDS ORDERED: DOCUSATE SODIUM 100MG CAPSULE PO PRN (12:00)
[2024-01-18] MEDS ORDERED: ONDANSETRON HCL 4MG/2ML INJ IV PRN (12:00)
[2024-01-18] MEDS ORDERED: DEXTROSE 50% WATER 50ML SYRINGE IV PRN (12:00)
[2024-01-18] MEDS: BLOOD SUGAR DIAGNOSTIC STRIP TEST SCH (12:10)
[2024-01-18] MEDS: INSULIN LISPRO 100 UNITS/ML SUBCUT SCH (12:40)
[2024-01-18 13:15] LABS: CLARITY URINE CLEAR (CLEAR); COLOR URINE YELLOW (YELLOW); GLUCOSE URINE 1+ (NEGATIVE); KETONES URINE NEGATIVE (NEGATIVE); LEUKOCYTE ESTERASE URINE NEGATIVE (NEGATIVE); NITRITE URINE NEGATIVE (NEGATIVE); OCCULT BLOOD URINE NEGATIVE (NEGATIVE); PROTEIN URINE NEGATIVE (NEGATIVE); SPECIFIC GRAVITY URINE 1.031 (1.005-1.030)
[2024-01-18 13:32] LABS: BACTERIA URINE NONE SEEN; RBC URINE 0-2 /hpf (0-2); SQUAMOUS EPITHELIAL CELL URINE RARE /lpf (RARE/1+); WBC URINE 0-2 /hpf (0-2); YEAST URINE NONE SEEN
[2024-01-18 13:35] LABS: BG BASE EXCESS 8.8 mmol/L (-2.0-2.0); BG CARBOXYHEMOGLOBIN 0.4 % (0.5-1.5); BG DEOXYHEMOGLOBIN 9.4 % (0.0-5.0); BG FRACTION INSPIRED OXYGEN 21; BG METHEMOGLOBIN 0.2 % (0.0-1.5); BG OXYGEN SATURATION 90.5 % (92.0-98.5); BG PCO2 60.5 mmHg (35.0-45.0); BG PH 7.393 (7.350-7.450); BG SAMPLE SITE RIGHT RADIAL; BG TOTAL HEMOGLOBIN 14.8 g/dL (12.0-18.0); BG VENT MODE ROOM AIR
[2024-01-18] MEDS: HYDRALAZINE HCL 25MG TABLET PO SCH (13:52)
[2024-01-18 14:03] LABS: *AMPHETAMINES SCREEN URINE NEGATIVE (NEGATIVE); *BARBITURATES SCREEN URINE NEGATIVE (NEGATIVE); *BENZODIAZEPINES SCREEN URINE NEGATIVE (NEGATIVE); *COCAINE SCREEN URINE NEGATIVE (NEGATIVE); CANNABINOID URINE SCREEN NEGATIVE (NEGATIVE); ECSTASY MDMA SCREEN URINE NEGATIVE (NEGATIVE); METHADONE URINE SCREEN Neg (NEGATIVE); OPIATES URINE SCREEN NEGATIVE (NEGATIVE); PHENCYCLIDINE URINE SCREEN NEGATIVE (NEGATIVE)
[2024-01-18 16:16] LABS: HEMATOCRIT. 42.8 % (42.0-52.0); HEMOGLOBIN. 13.9 g/dL (14.0-18.0); MEAN CORPUSCULAR HEMOGLOBIN 30.6 pg (28.0-32.0); MEAN CORPUSCULAR HGB CONC 32.4 g/dL (31.0-37.0); MEAN CORPUSCULAR VOLUME 94.5 fL (80.0-94.0); MEAN PLATELET VOLUME 9.3 fl (7.4-10.4); PLATELET 272 x1000/uL (130-400); RED BLOOD CELL COUNT 4.53 mill/uL (4.7-6.1); RED CELL DISTRIBUTION WIDTH 14.1 % (11.6-14.6); WHITE BLOOD COUNT 9.1 x1000/uL (4.5-11.0)
[2024-01-18 16:17] LABS: DIFFERENTIAL COMMENT 1
[2024-01-18 16:33] LABS: D-DIMER < 0.19 mg/L FEU (<0.50); PROTHROMBIN TIME 10.7 sec (9.6-11.0)
[2024-01-18 16:34] LABS: ALANINE AMINOTRANSFERASE 15 IU/L (10-49); ALBUMIN 4.8 g/dL (3.2-4.8); ASPARTATE AMINOTRANSFERASE 18 IU/L (<34); BILIRUBIN TOTAL 0.8 mg/dL (0.1-1.0); CALCIUM 9.4 mg/dL (8.7-10.4); CARBON DIOXIDE 35 mEq/L (21-32); CHLORIDE 101 mEq/L (98-107); CREATININE 0.8 mg/dL (0.6-1.3); GLUCOSE 169 mg/dL (70-105); POTASSIUM 4.4 mEq/L (3.5-5.1); PROTEIN TOTAL 7.6 g/dL (6.0-8.3); SODIUM 141 mEq/L (136-145); UREA NITROGEN BLOOD 21 mg/dL (9-23)
[2024-01-18 17:26] LABS: PLATELET ESTIMATE NORMAL
[2024-01-18] MEDS: METHYLPREDNISOLONE SOD SUCC 40MG/ML (ACT-O-VIAL) IV SCH (21:53)
[2024-01-19] VITALS (9 sets, daily range): BP systolic 137–187; BP diastolic 67–94; PULSE 60–102; RESP 18–20; TEMP 96.9–97.9; O2SAT 95
[2024-01-19 16:23] LABS: HEMATOCRIT. 41.9 % (42.0-52.0); HEMOGLOBIN. 13.5 g/dL (14.0-18.0); MEAN CORPUSCULAR HEMOGLOBIN 30.6 pg (28.0-32.0); MEAN CORPUSCULAR HGB CONC 32.3 g/dL (31.0-37.0); MEAN CORPUSCULAR VOLUME 94.6 fL (80.0-94.0); MEAN PLATELET VOLUME 9.9 fl (7.4-10.4); PLATELET 250 x1000/uL (130-400); RED BLOOD CELL COUNT 4.43 mill/uL (4.7-6.1); RED CELL DISTRIBUTION WIDTH 13.9 % (11.6-14.6); WHITE BLOOD COUNT 9.4 x1000/uL (4.5-11.0)
[2024-01-19 16:25] LABS: DIFFERENTIAL COMMENT 1
[2024-01-19 16:41] LABS: CALCIUM 8.9 mg/dL (8.7-10.4); CARBON DIOXIDE 30 mEq/L (21-32); CHLORIDE 101 mEq/L (98-107); CREATININE 0.7 mg/dL (0.6-1.3); GLUCOSE 79 mg/dL (70-105); POTASSIUM 4.9 mEq/L (3.5-5.1); SODIUM 136 mEq/L (136-145); UREA NITROGEN BLOOD 18 mg/dL (9-23)
[2024-01-19 17:04] LABS: PLATELET ESTIMATE NORMAL
[2024-01-20] VITALS (11 sets, daily range): BP systolic 99–174; BP diastolic 59–86; PULSE 60–103; RESP 18–20; TEMP 96.6–98.6; O2SAT 96–100
[2024-01-20] MEDS ORDERED: ALBU6.7H15 INH (10:28)
[2024-01-20] MEDS ORDERED: FLUT1DIS3 INH (10:28)
[2024-01-20] MEDS: CLONIDINE 0.1MG TABLET PO PRN (14:56)
[2024-01-20] MEDS: NIFEDIPINE XL 60MG TAB PO NR (16:53)
[2024-01-21] MEDS ORDERED: P50 MT (17:55)
== END 2024-01-20 22:55 | disposition home or self-care (01) | DRG 140 ==
LOC: ER 18:50 → 8WST 21:45 → EDBEDREQ 22:35 → EDBEDREQTM 23:04 → EDBEDREQ 01-18 00:26 → EDBEDREQTM 01-18 00:26
PROVIDERS: ADMIT Internal Medicine; ATTEND Internal Medicine
DX: J44.1 Chronic obstructive pulmonary disease with (acute) exacerbation (principal); J96.21 Acute and chronic respiratory failure with hypoxia; E11.40 Type 2 diabetes mellitus with diabetic neuropathy, unspecified; D53.9 Nutritional anemia, unspecified; E66.9 Obesity, unspecified; E78.5 Hyperlipidemia, unspecified; J96.22 Acute and chronic respiratory failure with hypercapnia; Z72.0 Tobacco use; I50.32 Chronic diastolic (congestive) heart failure; I11.0 Hypertensive heart disease with heart failure; F14.10 Cocaine abuse, uncomplicated; F41.9 Anxiety disorder, unspecified; F19.10 Other psychoactive substance abuse, uncomplicated; Z68.26 Body mass index [BMI] 26.0-26.9, adult
CPT/HCPCS: 36415; 36600; 71045; 80048; 80053; 80305; 81003; 82375; 82805; 82962; 83036; 83605; 83880; 84145; 84484; 85025; 85379; 94640; 99285; J1650; J1815; J1940; J2920; J2930; J3475

== ENCOUNTER 2024-01-20 23:51 | Emergency (ER) | payer MEDICARE, MEDICAID ==
[~2024-01-20] VITALS: Ht 170.2 cm; Wt 75.0 kg
[~2024-01-20 23:51] MED LIST changes: +FLUT1DIS3 INH
[2024-01-20 23:52] VITALS: TEMP 98.2
[2024-01-21] MEDS: METHYLPREDNISOLONE SOD SUCC 125MG/2ML (ACT-O-VIAL) IV STA (00:18)
[2024-01-21] MEDS: MAGNESIUM 2 G PREMIX 50 ML IV ONE (00:30)
[2024-01-21 00:37] LABS: BASOPHILS % 0.4 % (0.0-2.0); EOSINOPHILS % 0.1 % (0.0-5.0); HEMATOCRIT. 41.9 % (42.0-52.0); HEMOGLOBIN. 13.7 g/dL (14.0-18.0); LYMPHOCYTES % 17.1 % (20.0-50.0); MEAN CORPUSCULAR HEMOGLOBIN 31.4 pg (28.0-32.0); MEAN CORPUSCULAR HGB CONC 32.8 g/dL (31.0-37.0); MEAN CORPUSCULAR VOLUME 95.7 fL (80.0-94.0); MEAN PLATELET VOLUME 9.1 fl (7.4-10.4); MONOCYTES % 12.6 % (2.0-8.0); NEUTROPHILS % 69.8 % (40.0-76.0); PLATELET 292 x1000/uL (130-400); RED BLOOD CELL COUNT 4.37 mill/uL (4.7-6.1); RED CELL DISTRIBUTION WIDTH 13.7 % (11.6-14.6); WHITE BLOOD COUNT 10.5 x1000/uL (4.5-11.0)
[2024-01-21] MEDS: IPRATROPIUM BROMIDE (0.02%) 0.5MG/2.5ML NEB HHN STA (00:47)
[2024-01-21] MEDS: ALBUTEROL (0.083%) 2.5MG/3ML NEB HHN SCH (00:47)
[2024-01-21 00:50] VITALS: PULSE 91; RESP 18; O2SAT 100
[2024-01-21 01:01] VITALS: BP 126/77; PULSE 84; RESP 20
[2024-01-21 01:01] LABS: ALANINE AMINOTRANSFERASE 32 IU/L (10-49); ALBUMIN 4.7 g/dL (3.2-4.8); ASPARTATE AMINOTRANSFERASE 26 IU/L (<34); BILIRUBIN TOTAL 0.6 mg/dL (0.1-1.0); CALCIUM 9.3 mg/dL (8.7-10.4); CARBON DIOXIDE 33 mEq/L (21-32); CHLORIDE 101 mEq/L (98-107); CREATININE 0.9 mg/dL (0.6-1.3); GLUCOSE 92 mg/dL (70-105); POTASSIUM 4.3 mEq/L (3.5-5.1); PROTEIN TOTAL 7.2 g/dL (6.0-8.3); SODIUM 137 mEq/L (136-145); TROPONIN I HIGH SENSITIVITY 36 ng/L (3.0-53); UREA NITROGEN BLOOD 28 mg/dL (9-23)
[2024-01-21 03:12] LABS: TROPONIN I HIGH SENSITIVITY 50 ng/L (3.0-53)
[2024-01-21] MEDS ORDERED: BUDESONIDE 0.5MG/2ML NEB HHN SCH (05:30)
[2024-01-21] MEDS ORDERED: ACETAMINOPHEN 325MG TABLET PO PRN (05:30)
[2024-01-21] MEDS ORDERED: DOCUSATE SODIUM 100MG CAPSULE PO PRN (05:30)
[2024-01-21] MEDS ORDERED: IPRATROPIUM/ALBUTEROL 0.5-3(2.5)MG/3ML NEB HHN PRN (05:30)
[2024-01-21] MEDS ORDERED: GUAIFENESIN 200MG/10ML SUGAR FREE UDC PO PRN (05:30)
[2024-01-21] MEDS ORDERED: CLONIDINE 0.1MG TABLET PO PRN (05:30)
[2024-01-21] MEDS ORDERED: IPRATROPIUM/ALBUTEROL 0.5-3(2.5)MG/3ML NEB HHN SCH (05:30)
[2024-01-21] MEDS ORDERED: MAGNESIUM/ALUMINUM HYDROXIDE/SIMETHICONE 30ML UDC PO PRN (05:30)
[2024-01-21] MEDS ORDERED: DEXTROSE 50% WATER 50ML SYRINGE IV PRN (06:00)
[2024-01-21] MEDS ORDERED: NITROGLYCERIN OINT 1GM/INCH UDPKT TD NR (06:45)
[2024-01-21 07:16] LABS: CHOLESTEROL 161 mg/dL (<200); HDL CHOLESTEROL 72 mg/dL (>55); LDL CHOLESTEROL 71 mg/dL (5-100); TRIGLYCERIDE 105 mg/dL (0-150)
[2024-01-21] MEDS ORDERED: INSULIN LISPRO 100 UNITS/ML SUBCUT SCH (08:20)
[2024-01-21] MEDS ORDERED: BLOOD SUGAR DIAGNOSTIC STRIP TEST SCH (09:00)
[2024-01-21] MEDS ORDERED: ENOXAPARIN 40MG/0.4ML SYR SUBCUT SCH (09:00)
[2024-01-21] MEDS ORDERED: P50 MT (17:55)
== END 2024-01-21 09:19 | disposition home or self-care (01) ==
LOC: ER 23:59 → CANBEDREQ 01-21 08:01 → ER 01-21 09:19
DX: J44.9 Chronic obstructive pulmonary disease, unspecified (principal); R07.89 Other chest pain; I11.0 Hypertensive heart disease with heart failure; I50.9 Heart failure, unspecified; Z86.73 Personal history of transient ischemic attack (TIA), and cerebral infarction without residual deficits
CPT/HCPCS: 94644; 99285; 80061; 80053; 82962; 83880; 83735; 85025; 84484; 36415; 84145; 71045; 93005; 96365; 96366; 96375; J3475; J2930; Z7610

== ENCOUNTER 2024-01-21 14:44 | Emergency (ER) | payer MEDICARE, MEDICAID ==
[~2024-01-21] VITALS: Ht 170.2 cm; Wt 75.0 kg
[~2024-01-21 14:44] MED LIST changes: -AZIT500T MT
[2024-01-21 14:50] VITALS: TEMP 98.7
[2024-01-21] MEDS: METHYLPREDNISOLONE SOD SUCC 125MG/2ML (ACT-O-VIAL) IV ONE (15:15)
[2024-01-21] MEDS ORDERED: IPRATROPIUM/ALBUTEROL 0.5-3(2.5)MG/3ML NEB HHN ONE (15:15)
[2024-01-21] MEDS ORDERED: ALBUTEROL (0.083%) 2.5MG/3ML NEB HHN ONE (15:15)
[2024-01-21 15:53] LABS: HEMATOCRIT. 44.2 % (42.0-52.0); HEMOGLOBIN. 14.5 g/dL (14.0-18.0); MEAN CORPUSCULAR HEMOGLOBIN 30.8 pg (28.0-32.0); MEAN CORPUSCULAR HGB CONC 32.7 g/dL (31.0-37.0); MEAN CORPUSCULAR VOLUME 94.2 fL (80.0-94.0); MEAN PLATELET VOLUME 9.2 fl (7.4-10.4); PLATELET 297 x1000/uL (130-400); RED BLOOD CELL COUNT 4.69 mill/uL (4.7-6.1); RED CELL DISTRIBUTION WIDTH 14.4 % (11.6-14.6); WHITE BLOOD COUNT 11.4 x1000/uL (4.5-11.0)
[2024-01-21 16:07] LABS: DIFFERENTIAL COMMENT 1
[2024-01-21 16:08] LABS: ALANINE AMINOTRANSFERASE 35 IU/L (10-49); ALBUMIN 4.8 g/dL (3.2-4.8); ASPARTATE AMINOTRANSFERASE 22 IU/L (<34); CALCIUM 9.3 mg/dL (8.7-10.4); CARBON DIOXIDE 30 mEq/L (21-32); CHLORIDE 99 mEq/L (98-107); CREATININE 0.8 mg/dL (0.6-1.3); ETHANOL BLOOD < 10 mg/dL (<10); GLUCOSE 111 mg/dL (70-105); POTASSIUM 4.7 mEq/L (3.5-5.1); PROTEIN TOTAL 7.6 g/dL (6.0-8.3); SODIUM 135 mEq/L (136-145); TROPONIN I HIGH SENSITIVITY 34 ng/L (3.0-53); UREA NITROGEN BLOOD 21 mg/dL (9-23)
[2024-01-21 16:55] LABS: PLATELET ESTIMATE NORMAL
[2024-01-21 17:06] VITALS: PULSE 71; RESP 20; O2SAT 98
[2024-01-21] MEDS: IPRATROPIUM/ALBUTEROL 0.5-3(2.5)MG/3ML NEB HHN NR (17:06)
[2024-01-21] MEDS: ALBUTEROL (0.083%) 2.5MG/3ML NEB HHN NR (17:06)
[2024-01-21 17:52] VITALS: BP 128/100; PULSE 78; RESP 15
[2024-01-21] MEDS ORDERED: P50 MT (17:55)
== END 2024-01-22 01:09 | disposition home or self-care (01) ==
LOC: ER 14:44
DX: J44.1 Chronic obstructive pulmonary disease with (acute) exacerbation (principal); F41.9 Anxiety disorder, unspecified; I11.0 Hypertensive heart disease with heart failure; I50.9 Heart failure, unspecified; J44.9 Chronic obstructive pulmonary disease, unspecified; E11.9 Type 2 diabetes mellitus without complications; I25.2 Old myocardial infarction; Z86.73 Personal history of transient ischemic attack (TIA), and cerebral infarction without residual deficits; Z87.891 Personal history of nicotine dependence; Z79.899 Other long term (current) drug therapy
CPT/HCPCS: 80053; 80320; 83880; 85025; 84484; 36415; 71045; 94640; 93005; 96374; 99285; J2930; Z7610 ×8; G0480

== ENCOUNTER 2024-01-22 02:06 | Emergency (ER) | payer MEDICARE, MEDICAID ==
[~2024-01-22] VITALS: Ht 172.7 cm; Wt 67.0 kg
[~2024-01-22 02:06] MED LIST changes: +P50 MT
[2024-01-22 02:16] VITALS: O2SAT 100
[2024-01-22] MEDS: HYDRALAZINE HCL 50MG TABLET PO ONE (13:29)
[2024-01-22] MEDS: HYDRALAZINE HCL 100MG TABLET PO ONE (18:00)
[2024-01-22] MEDS: CLONIDINE 0.1MG TABLET PO ONE (18:00)
[2024-01-23] MEDS: HYDRALAZINE HCL 100MG TABLET PO ONE (09:45)
[2024-01-23] MEDS: CLONIDINE 0.2MG TABLET PO ONE (16:00)
[2024-01-23] MEDS ORDERED: CLONIDINE 0.2MG TABLET PO ONE (19:30)
[2024-01-23] MEDS: CLONIDINE 0.1MG TABLET PO NR (20:00)
[2024-01-24] MEDS: CLONIDINE 0.1MG TABLET PO ONE (08:44)
[2024-01-24] MEDS: CLONIDINE 0.1MG TABLET PO NR (15:15)
[2024-01-24] MEDS ORDERED: CLONIDINE 0.2MG TABLET PO ONE (15:15)
[2024-01-24] MEDS: HALOPERIDOL LACTATE 5MG/ML VIAL IM ONE (22:37)
[2024-01-24 22:44] LABS: CLARITY URINE CLEAR (CLEAR); COLOR URINE YELLOW (YELLOW); GLUCOSE URINE NEGATIVE (NEGATIVE); KETONES URINE NEGATIVE (NEGATIVE); LEUKOCYTE ESTERASE URINE NEGATIVE (NEGATIVE); NITRITE URINE NEGATIVE (NEGATIVE); OCCULT BLOOD URINE NEGATIVE (NEGATIVE); PH URINE 7.5 (4.5-8.0); PROTEIN URINE NEGATIVE (NEGATIVE); SPECIFIC GRAVITY URINE 1.025 (1.005-1.030)
[2024-01-24 22:54] LABS: *AMPHETAMINES SCREEN URINE NEGATIVE (NEGATIVE); *BARBITURATES SCREEN URINE NEGATIVE (NEGATIVE); *BENZODIAZEPINES SCREEN URINE NEGATIVE (NEGATIVE); *COCAINE SCREEN URINE NEGATIVE (NEGATIVE); CANNABINOID URINE SCREEN NEGATIVE (NEGATIVE); ECSTASY MDMA SCREEN URINE NEGATIVE (NEGATIVE); METHADONE URINE SCREEN Neg (NEGATIVE); OPIATES URINE SCREEN NEGATIVE (NEGATIVE); PHENCYCLIDINE URINE SCREEN NEGATIVE (NEGATIVE)
[2024-01-25 00:50] LABS: CARBON DIOXIDE 35 mEq/L (21-32); CHLORIDE 100 mEq/L (98-107); GLUCOSE 96 mg/dL (70-105); POTASSIUM 4.9 mEq/L (3.5-5.1); SODIUM 137 mEq/L (136-145); UREA NITROGEN BLOOD 21 mg/dL (9-23)
[2024-01-25 00:51] LABS: ALANINE AMINOTRANSFERASE 28 IU/L (10-49); ALBUMIN 4.4 g/dL (3.2-4.8); ASPARTATE AMINOTRANSFERASE 20 IU/L (<34); BILIRUBIN TOTAL 1.3 mg/dL (0.1-1.0); CALCIUM 9.1 mg/dL (8.7-10.4); CREATININE 0.9 mg/dL (0.6-1.3); PROTEIN TOTAL 7.2 g/dL (6.0-8.3)
[2024-01-25 00:52] LABS: ACETAMINOPHEN < 2 ug/mL (10-30); ETHANOL BLOOD < 10 mg/dL (<10)
[2024-01-25 07:28] LABS: HEMATOCRIT. 47.5 % (42.0-52.0); HEMOGLOBIN. 15.5 g/dL (14.0-18.0); MEAN CORPUSCULAR HGB CONC 32.5 g/dL (31.0-37.0); MEAN CORPUSCULAR VOLUME 95.2 fL (80.0-94.0); MEAN PLATELET VOLUME 8.7 fl (7.4-10.4); PLATELET 275 x1000/uL (130-400); RED BLOOD CELL COUNT 4.99 mill/uL (4.7-6.1); WHITE BLOOD COUNT 10.3 x1000/uL (4.5-11.0)
[2024-01-25] MEDS: ERYTHROMYCIN BASE 0.5% OPHTH OINT 3.5GM LEFTEYE SCH (07:30)
[2024-01-25] MEDS: PREDNISONE 20MG TABLET PO STA (07:30)
[2024-01-25 07:35] LABS: DIFFERENTIAL COMMENT 1
[2024-01-25 08:20] VITALS: PULSE 88; RESP 24
[2024-01-25] MEDS: IPRATROPIUM BROMIDE (0.02%) 0.5MG/2.5ML NEB HHN STA (08:20)
[2024-01-25] MEDS: ALBUTEROL (0.083%) 2.5MG/3ML NEB HHN STA (08:20)
[2024-01-25 08:50] LABS: PLATELET ESTIMATE NORMAL
[2024-01-25 10:40] VITALS: BP 164/90; PULSE 99; RESP 18; TEMP 98.4
== END 2024-01-25 19:30 | disposition still patient (30) ==
LOC: ER 02:06
DX: J44.9 Chronic obstructive pulmonary disease, unspecified (principal); E11.9 Type 2 diabetes mellitus without complications; J44.1 Chronic obstructive pulmonary disease with (acute) exacerbation; I11.0 Hypertensive heart disease with heart failure; I50.9 Heart failure, unspecified; Z20.822 Contact with and (suspected) exposure to COVID-19; Z99.81 Dependence on supplemental oxygen; Z93.0 Tracheostomy status; Z88.5 Allergy status to narcotic agent; Z79.899 Other long term (current) drug therapy; Z86.73 Personal history of transient ischemic attack (TIA), and cerebral infarction without residual deficits
CPT/HCPCS: 80053; 80305; 81003; 80307; 80329; 80320; 99285; 87426; 36415; 96372; 85025; 94640; Z7610 ×5; J1630; G0480